=== PATIENT | male | born 1980 | race Caucasian/White ===

== ENCOUNTER 2020-04-06 07:55 | Outpatient (REF) | payer OTHER, SELFPAY ==
[2020-04-06 08:47] LABS: MANUAL DIFF FLAG NO
[2020-04-06 08:50] LABS: Basophils Percent Auto 0.6 % (0-2); Eosinophils Absolute Auto 0.3 X10*3/uL (0.0-0.4); Eosinophils Percent Auto 3.8 % (0-4); Imm Gran Abs Auto 0.03 X10*3/uL (0.00-0.03); Imm Gran Pct Auto 0.5 % (0.0-0.4); Lymphocytes Absolute Auto 1.9 X10*3/uL (1.2-4.9); Lymphocytes Percent Auto 28.7 % (20-40); Mean Corpuscular HGB Conc 32.6 g/dl (31.0-36.0); Mean Corpuscular Hemoglobin 27.6 pg (27.0-33.0); Mean Corpuscular Volume 84.6 fL (80-98); Monocytes Absolute Auto 0.5 X10*3/uL (0.1-1.2); Monocytes Percent Auto 7.2 % (2-11); Neutrophils Absolute Auto 3.9 X10*3/uL (2.0-8.3); Neutrophils Percent Auto 59.2 % (45-73); Platelet Count 238 X10*3/uL (160-400); Red Blood Count 5.08 X10*6/uL (4.60-5.80); Red Cell Distribution Width 12.9 % (11.0-16.0); White Blood Count 6.7 X10*3/uL (4.8-10.8)
[2020-04-06 09:12] LABS: Alanine Aminotransferase 31 U/L (0-40); Albumin Level 4.4 g/dL (3.5-5.0); Alkaline Phosphatase 66 U/L (39-117); Anion Gap 14 (12-20); Aspartate Amino Transferase 26 U/L (5-37); Bilirubin Total 0.8 mg/dL (0.0-1.0); Blood Urea Nitrogen 14 mg/dL (9-16); Calcium 9.1 mg/dL (8.4-10.2); Carbon Dioxide 26 mmol/L (22-29); Chloride 101 mmol/L (96-108); Cholesterol 171 mg/dL; Estimated Glomerular Filt Rate > 60; Glucose Fasting 87 mg/dL (60-99); HDL Cholesterol 43 mg/dL; LDL Cholesterol Calculated 96 mg/dl; Potassium 4.6 mmol/l (3.3-5.1); Sodium 136 mmol/L (135-145); Triglycerides 161 mg/dL
[2020-04-06 10:40] LABS: Free T4 (Free Thyroxine) 1.22 ng/dL (0.71-1.85)
[2020-04-06 10:54] LABS: Creatinine Urine 134.12 mg/dL; Microalbum/Creatinine Ratio Ur 12.6 ug/mg cr
== END 2020-04-06 07:56 | disposition home or self-care (01) ==
LOC: HO.LAB 07:55
PROVIDERS: PCP Physician Assistant; Visit Provider Physician Assistant
DX: I10 Essential (primary) hypertension (principal); E03.9 Hypothyroidism, unspecified
CPT/HCPCS: 36415; 80053; 80061; 82043; 84439; 84443; 85025

== ENCOUNTER 2020-12-05 07:10 | Outpatient (REF) | payer OTHER, SELFPAY ==
[2020-12-05 08:49] LABS: Hematocrit 43.2 % (42-52); Hemoglobin 14.2 g/dl (14.0-18.0); Mean Corpuscular HGB Conc 32.9 g/dl (31.0-36.0); Mean Corpuscular Hemoglobin 27.8 pg (27.0-33.0); Mean Corpuscular Volume 84.7 fL (80-98); Mean Platelet Volume 11.1 fL (9.4-12.4); Platelet Count 237 X10*3/uL (160-400); Red Cell Distribution Width 13.1 % (11.0-16.0); White Blood Count 6.3 X10*3/uL (4.8-10.8)
[2020-12-05 08:54] LABS: Estimated Average Glucose 105 mg/dL; Hemoglobin A1c % 5.3 %
[2020-12-05 09:14] LABS: Alanine Aminotransferase 26 U/L (0-40); Albumin Level 4.4 g/dL (3.5-5.0); Alkaline Phosphatase 68 U/L (39-117); Anion Gap 13 (12-20); Aspartate Amino Transferase 23 U/L (5-37); Bilirubin Total 0.6 mg/dL (0.0-1.0); Blood Urea Nitrogen 17 mg/dL (9-16); Calcium 9.6 mg/dL (8.4-10.2); Carbon Dioxide 26 mmol/L (22-29); Chloride 104 mmol/L (96-108); Cholesterol 189 mg/dL; Estimated Glomerular Filt Rate > 60; Glucose Fasting 82 mg/dL (60-99); HDL Cholesterol 42 mg/dL; LDL Cholesterol Calculated 113 mg/dl; Potassium 4.5 mmol/L (3.3-5.1); Sodium 138 mmol/L (135-145); Total Protein 7.1 g/dL (6.5-8.0); Triglycerides 171 mg/dL
[2020-12-05 09:23] LABS: TSH reflex Free T4 3.87 uIU/mL (0.32-4.0)
== END 2020-12-05 07:11 | disposition home or self-care (01) ==
LOC: HO.LAB 07:10
PROVIDERS: PCP Physician Assistant; Visit Provider Physician Assistant
DX: E03.9 Hypothyroidism, unspecified (principal); E78.2 Mixed hyperlipidemia; E66.01 Morbid (severe) obesity due to excess calories; Z68.43 Body mass index [BMI] 50.0-59.9, adult; I10 Essential (primary) hypertension
CPT/HCPCS: 36415; 80053; 80061; 83036; 84443; 85027

== ENCOUNTER 2021-07-12 07:15 | Outpatient (REF) | payer OTHER, SELFPAY ==
[2021-07-12 08:18] LABS: Estimated Average Glucose 108 mg/dL; Hemoglobin A1C 124.5595 umol/L; Hemoglobin A1c % 5.4 %
[2021-07-12 08:26] LABS: Alanine Aminotransferase 57 U/L (0-40); Albumin Level 4.3 g/dL (3.5-5.0); Alkaline Phosphatase 62 U/L (39-117); Anion Gap 13 (12-20); Aspartate Amino Transferase 33 U/L (5-37); Bilirubin Total 0.6 mg/dL (0.0-1.0); Blood Urea Nitrogen 15 mg/dL (9-16); Calcium 9.8 mg/dL (8.4-10.2); Carbon Dioxide 28 mmol/L (22-29); Chloride 104 mmol/L (96-108); Cholesterol 187 mg/dL; Estimated Glomerular Filt Rate > 60; Glucose Fasting 94 mg/dL (60-99); HDL Cholesterol 43 mg/dL; LDL Cholesterol Calculated 108 mg/dl; Sodium 140 mmol/L (135-145); Triglycerides 184 mg/dL
[2021-07-12 08:49] LABS: Prostate Specific Antigen Scr 0.31 ng/mL (<0.05-4.0); TSH reflex Free T4 4.33 uIU/mL (0.32-4.0)
[2021-07-12 09:20] LABS: Vitamin D 25-OH Total 31.7 ng/mL (>30)
[2021-07-12 09:36] LABS: Free T4 (Free Thyroxine) 1.04 ng/dL (0.71-1.85)
== END 2021-07-12 07:16 | disposition home or self-care (01) ==
LOC: HO.LAB 07:15
PROVIDERS: PCP Physician Assistant; Visit Provider Physician Assistant
DX: E78.2 Mixed hyperlipidemia (principal); E66.01 Morbid (severe) obesity due to excess calories; Z68.43 Body mass index [BMI] 50.0-59.9, adult; I10 Essential (primary) hypertension; E03.9 Hypothyroidism, unspecified; Z12.5 Encounter for screening for malignant neoplasm of prostate
CPT/HCPCS: 36415; 80053; 80061; 82306; 83036; 84153; 84439; 84443

== ENCOUNTER 2021-12-15 07:56 | Outpatient (REF) | payer OTHER, SELFPAY ==
[2021-12-15 08:31] LABS: Hematocrit 42.4 % (42.0-52.0); Hemoglobin 14.2 g/dl (14.0-18.0); Mean Corpuscular HGB Conc 33.5 g/dl (31.0-36.0); Mean Corpuscular Hemoglobin 28.5 pg (27.0-33.0); Mean Corpuscular Volume 85.1 fL (80.0-98.0); Mean Platelet Volume 10.8 fL (9.4-12.4); Platelet Count 212 X10*3/uL (160-400); Red Blood Count 4.98 X10*6/uL (4.60-5.80); Red Cell Distribution Width 13.3 % (11.0-16.0)
[2021-12-15 08:35] LABS: Appearance Urine CLEAR; Color Urine YELLOW; Glucose Urine UA NEG (NEG); Leukocyte Esterase Urine NEG (NEG); Nitrite Urine NEG (NEG); PH 6.5 (5.0-8.0); Specific Gravity - Urine <= 1.005 (1.005-1.025); Urine Blood NEG (NEG); Urine Ketones NEG (NEG); Urine Protein NEG (NEG-TRACE)
[2021-12-15 09:05] LABS: Alanine Aminotransferase 52 U/L (0-40); Albumin Level 4.5 g/dL (3.5-5.0); Alkaline Phosphatase 70 U/L (39-117); Anion Gap 12 (12-20); Aspartate Amino Transferase 33 U/L (5-37); Blood Urea Nitrogen 10 mg/dL (9-16); Calcium 9.7 mg/dL (8.4-10.2); Carbon Dioxide 27 mmol/L (22-29); Chloride 104 mmol/L (96-108); Cholesterol 188 mg/dL; Estimated Glomerular Filt Rate > 60; Glucose Fasting 88 mg/dL (60-99); HDL Cholesterol 46 mg/dL; LDL Cholesterol Calculated 109 mg/dl; Potassium 4.4 mmol/L (3.3-5.1); Sodium 139 mmol/L (135-145); Total Protein 7.2 g/dL (6.5-8.0); Triglycerides 169 mg/dL
[2021-12-15 09:25] LABS: TSH reflex Free T4 3.41 uIU/mL (0.32-4.0)
[2021-12-18 03:57] LABS: Immunoglobulin E 51 kU/L (<OR=114)
== END 2021-12-15 07:57 | disposition home or self-care (01) ==
LOC: HO.LAB 07:56
PROVIDERS: PCP Physician Assistant; Visit Provider Physician Assistant
DX: L23.9 Allergic contact dermatitis, unspecified cause (principal); E03.9 Hypothyroidism, unspecified; E78.2 Mixed hyperlipidemia; R30.0 Dysuria; I10 Essential (primary) hypertension
CPT/HCPCS: 36415; 80053; 80061; 81003; 82785; 84443; 85027

== ENCOUNTER 2021-12-29 08:41 | Outpatient (REF) | payer OTHER, SELFPAY | END 2021-12-29 08:42 | disposition home or self-care (01) | LOC: HO.LAB 08:41 | PROVIDERS: PCP Physician Assistant; Visit Provider Physician Assistant | DX: Z91.09 Other allergy status, other than to drugs and biological substances (principal) | CPT/HCPCS: 36415; 82785; 86003 ==

== ENCOUNTER 2022-12-26 06:44 | Outpatient (REF) | payer OTHER, SELFPAY ==
[2022-12-26 09:14] LABS: Hematocrit 43.9 % (42.0-52.0); Hemoglobin 14.2 g/dl (14.0-18.0); Mean Corpuscular HGB Conc 32.3 g/dl (31.0-36.0); Mean Corpuscular Volume 86.6 fL (80.0-98.0); Mean Platelet Volume 10.9 fL (9.4-12.4); Platelet Count 235 X10*3/uL (160-400); Red Blood Count 5.07 X10*6/uL (4.60-5.80); Red Cell Distribution Width 12.7 % (11.0-16.0); White Blood Count 7.7 X10*3/uL (4.8-10.8)
[2022-12-26 09:54] LABS: Alanine Aminotransferase 44 U/L (0-40); Albumin Level 4.2 g/dL (3.5-5.0); Alkaline Phosphatase 61 U/L (39-117); Anion Gap 14 (12-20); Aspartate Amino Transferase 24 U/L (5-37); Bilirubin Total 0.4 mg/dL (0.0-1.0); Blood Urea Nitrogen 13 mg/dL (9-16); Calcium 9.9 mg/dL (8.4-10.2); Carbon Dioxide 26 mmol/L (22-29); Chloride 103 mmol/L (96-108); Cholesterol 194 mg/dL; Estimated Glomerular Filt Rate > 60; Glucose Fasting 72 mg/dL (60-99); HDL Cholesterol 46 mg/dL; LDL Cholesterol Calculated 99 mg/dl; Potassium 4.1 mmol/L (3.3-5.1); Sodium 139 mmol/L (135-145); TSH reflex Free T4 4.82 uIU/mL (0.32-4.0); Total Protein 7.3 g/dL (6.5-8.0); Triglycerides 248 mg/dL
[2022-12-26 09:55] LABS: Vitamin D 25-OH Total 35.4 ng/mL (>30)
[2022-12-26 10:44] LABS: Free T4 (Free Thyroxine) 0.97 ng/dL (0.71-1.85)
[2022-12-26 11:16] LABS: Creatinine Urine 85.42 mg/dL; Microalbum/Creatinine Ratio Ur 18.7 ug/mg cr
== END 2022-12-26 06:45 | disposition home or self-care (01) ==
LOC: HO.LAB 06:44
PROVIDERS: Nurse Practitioner Family; PCP Physician Assistant; Visit Provider Physician Assistant
DX: Z00.00 Encounter for general adult medical examination without abnormal findings (principal); E03.9 Hypothyroidism, unspecified; I10 Essential (primary) hypertension; E78.2 Mixed hyperlipidemia; E78.5 Hyperlipidemia, unspecified; L30.9 Dermatitis, unspecified
CPT/HCPCS: 36415; 80053; 80061; 82043; 82306; 84439; 84443; 85027

== ENCOUNTER 2023-01-04 07:37 | Outpatient (REF) | payer OTHER, SELFPAY ==
[2023-01-06 09:54] LABS: DHEA Sulfate 208 mcg/dL (93-415)
[2023-01-06 10:38] LABS: Prolactin 6.1 ng/mL (2.0-18.0)
[2023-01-09 12:24] LABS: Testosterone, Total 227 ng/dL (250-1100)
[2023-01-09 22:18] LABS: Estradiol Ultra Sensitive 56 pg/mL (< OR = 29)
== END 2023-01-04 07:38 | disposition home or self-care (01) ==
LOC: HO.LAB 07:37
PROVIDERS: PCP Physician Assistant; Visit Provider Physician Assistant
DX: E66.01 Morbid (severe) obesity due to excess calories (principal); E03.9 Hypothyroidism, unspecified; E29.1 Testicular hypofunction; Z68.43 Body mass index [BMI] 50.0-59.9, adult
CPT/HCPCS: 36415; 82627; 82670; 84146; 84402; 84403

== ENCOUNTER 2023-02-17 09:59 | Outpatient (AMB) | payer OTHER, SELFPAY ==
--- NOTE | 2023-02-17 10:04 | MHC.OFFVIS ---
Intake Intake Visit Reasons: Testicular hypofunction Intake Note: New Patient presents for initial visit testicular hypofunction (total test 227) Urology Medications: none Blood Thinner: none Surgical Lead Required: No Accompanied by: Self / Same As Patient Allergies penicillin V Allergy (Unknown, Verified 02/17/23 10:05) hives HPI HPI Comments History of Present Illness Details Fredis is a very pleasant 42 year old male patient of Dr. Zhu. He has a past medical history of obesity, sleep apnea, hypothyroidism, and hypercholesteremia. He presents to the office today as a new patient for hypogonadism. In discussion with the patient today he reports to be doing and feeling well. He reports following up with his PCP regarding send out labs he had performed through [facility]. At which time testosterone levels were noted to be low. It appears PCP obtain testosterone level for further assessment evaluation. These results were reviewed with the patient today. 12/29 Testosterone--227 07/31 PSA--0.3 He denies any signs or symptoms of hypogonadism. He denies any bothersome issues with his urination. He does report to be CPAP compliant since 2018. He discusses attempting to lose weight and is going for daily walks. Discussed at length potential causes for hypogonadism. Discussed obtaining redraw of labs for further assessment evaluation. In office urinalysis results reviewed with the patient today. He otherwise offers no other issues or concerns at this time. [facility] Medical History (Updated 02/17/23 @ 22:10 by Ana Kirkland [facility]) Sleep apnea Upper respiratory tract infection Patient is full code Surgical History History of surgical removal of lesion History of cosmetic surgery History of tonsillectomy and adenoidectomy History of appendectomy Family History Father CVD (cardiovascular disease) Hyperthyroidism Melanoma Mother Aortic valve replaced CVD (cardiovascular disease) Maternal Grandfather Myocardial infarction Brother Liver transplant status Biliary sclerosis Social History Housing: House Alcohol intake: current Alcohol intake frequency: holidays/special occasions only Patient Tobacco Use Status: Never used Tobacco Tobacco use type: Cigarette e-Cigarette/Vaping Use: Never Used Second Hand Smoke Exposure: No service: No Current occupational status: employed Current occupation: [employer] Cognitive needs: No Hearing needs: No Vision needs: No Review of Systems Const Reports as per HPI Eyes Reports no additional complaints ENT Reports as per HPI Card Reports as per HPI Resp Reports as per HPI GI Reports as per HPI Reports as per HPI Neuro Reports no additional complaints Psych Reports no additional complaints Endo Reports as per HPI Physical Exam Const General: cooperative, healthy appearing, comfortable, no acute distress, well developed, alert and awake Nutritional Appearance: obese Orientation/consciousness: patient oriented x3 Limitations: no limitations HEENT Head: Yes normal to inspection, Yes normocephalic and Yes atraumatic Ears: hearing grossly normal bilaterally Eyes General: appearance normal, both eyes and all related structures Neck Neck: Yes normal visual inspection and Yes trachea midline Chest Chest palpation & inspection: normal inspection of the chest Resp Effort & Inspection: normal respiratory effort and able to speak in complete sentences Cardio Rate: regular rate GI Inspection: Yes normal to inspection General: Yes no CVA tenderness Back/Spine/Pelvis Back: no CVA tenderness Skin General skin exam: no rashes or lesions noted Neuro General: patient oriented x3 Extrem General: Yes normal to inspection Psych Appearance: grossly normal and well kempt Mental Status: mental status grossly normal Speech and movement: Normal speech and movement present and Clear speech present Affect: normal affect Attitude: cooperative Thought process: Normal thought process present Thought content: Normal thought content present Insight: Good insight present (Psych) Judgement: Good judgement present (Psych) Results AMB Urinalysis, Automated UA Leukoctes 0 Darren/uL Last Edit by [employer] on 02/17/23 10:17 UA Nitrite Last Edit by [employer] on 02/17/23 10:17 UA Urobilinogen 0.2 mg/dL Last Edit by [email or web address] on 02/17/23 10:17 UA Protein 0 mg/dL Last Edit by [email or web address] on 02/17/23 10:17 UA pH 6.0 Last Edit by [email or web address] on 02/17/23 10:17 UA Blood 0 Kenan/uL Last Edit by [email or web address] on 02/17/23 10:17 UA Specific Sultan 1.005 Last Edit by [email or web address] on 02/17/23 10:17 UA Ketone Negative Last Edit by Ana Paula Chappell on 02/17/23 10:17 UA Bilirubin 0 mg/dL Last Edit by Ana Paula Chappell on 02/17/23 10:17 UA Glucose 0 mg/dL Last Edit by Ana Paula Chappell on 02/17/23 10:17 Results Reviewed Results Reviewed: Laboratory Last Values Urine pH (Auto) 6.0 02/17/23 10:07 Specific Sultan (Auto) 1.005 02/17/23 10:07 Urine Protein (Auto) 0 mg/dL 02/17/23 10:07 Glucose (UA)(Auto) 0 mg/dL 02/17/23 10:07 Urine Ketones (Auto) Negative 02/17/23 10:07 Urine Blood (Auto) 0 Kenan/uL 02/17/23 10:07 Urine Bilirubin (Auto) 0 mg/dL 02/17/23 10:07 Urine Urobilinogen (Auto) 0.2 mg/dL 02/17/23 10:07 Leukocyte Esterase (Auto) 0 Darren/uL 02/17/23 10:07 Assessment & Plan Assessment & Plan (1) Low testosterone in male: Code(s): R79.89 - Other specified abnormal findings of blood chemistry (2) Hypogonadism in male: Code(s): E29.1 - Testicular hypofunction Plan In office urinalysis results reviewed with the patient today; as noted above. Recent testosterone results reviewed with the patient today; as noted above. Discussed at length potential causes for hypogonadism. Discussed importance of compliance with CPAP, weight loss, adequate sleep, and daily activity for improvement in testosterone levels as well as overall health and well-being. Will obtain testosterone free and total, testosterone, FSH, LH, TSH, SHBG, and prolactin for further assessment evaluation. Patient denies any bothersome urinary issues or concerns at this time. Follow-up in 1 month with labs to be completed prior; or sooner with any issues, concerns, and or questions. Orders: Orders Testosterone, Free/Total Today E29.1 - Testicular hypofunction Follicle Stimulating Hormone Today E29.1 - Testicular hypofunction, R79.89 - Other specified abnormal findings of blood chemistry Lutenizing Hormone Today E29.1 - Testicular hypofunction, R79.89 - Other specified abnormal findings of blood chemistry Thyroid Stimulating Hormone Today E29.1 - Testicular hypofunction, R79.89 - Other specified abnormal findings of blood chemistry Sex Hormone Binding Globulin Today E29.1 - Testicular hypofunction, R79.89 - Other specified abnormal findings of blood chemistry AMB Urinalysis Automated Today Z13.9 - Encounter for screening, unspecified Prolactin Today E29.1 - Testicular hypofunction, R79.89 - Other specified abnormal findings of blood chemistry Patient Instructions: The patient had an opportunity to ask questions regarding the treatment plan. All questions were answered. Physical exam, labs, and imaging were discussed and reviewed in detail. As well as risks, benefits, and discussion of treatment choices. No major barriers to understanding were identified. The patient expressed understanding and agreement with the above treatment plan. The patient was made aware they should contact our office by phone for worsening of their current condition, the appearance of new symptoms, or with any questions or concerns. Compliance is encouraged with any medications and follow up testing that is ordered. It is a privilege to be allowed the opportunity to participate in? your urological care.? Again, if you have any questions or concerns If you have any questions or concerns please do not hesitate to contact me. The office is [phone]. This note is constructed using voice recognition software. While every effort has been made to ensure accuracy satellite installer errors may have been included. Yours sincerely, GIULIANA Arias Coding Level of Care Code New Pt Level 3 (99550) Diagnoses Low testosterone in male R79.89 Hypogonadism in male E29.1
== END 2023-02-17 10:43 | disposition home or self-care (01) ==
PROVIDERS: PCP Physician Assistant; Visit Provider Nurse Practitioner Family
DX: R79.89 Other specified abnormal findings of blood chemistry (principal); E29.1 Testicular hypofunction
CPT/HCPCS: 99203

== ENCOUNTER → 2023-02-17 09:59 | Outpatient (BNVA) | payer OTHER, SELFPAY | PROVIDERS: PCP Physician Assistant; Visit Provider Nurse Practitioner Family | DX: E29.1 Testicular hypofunction (principal); R79.89 Other specified abnormal findings of blood chemistry | CPT/HCPCS: 81003 ==

== ENCOUNTER 2023-03-01 08:00 | Outpatient (REF) | payer OTHER, SELFPAY ==
[2023-03-03 00:44] LABS: Lutenizing Hormone 2.2 mIU/mL (1.5-9.3); Prolactin 5.4 ng/mL (2.0-18.0); Sex Hormone Binding Globulin 30 nmol/L (10-50)
[2023-03-06 12:23] LABS: Testosterone, Free 39.5 pg/mL (35.0-155.0); Testosterone, Total 241 ng/dL (250-1100)
== END 2023-03-01 08:01 | disposition home or self-care (01) ==
LOC: HO.LAB 08:00
PROVIDERS: Absent Provider Physician Assistant; PCP Physician Assistant; Visit Provider Nurse Practitioner Family
DX: E03.9 Hypothyroidism, unspecified (principal); E29.1 Testicular hypofunction; R79.89 Other specified abnormal findings of blood chemistry
CPT/HCPCS: 36415; 83001; 83002; 84146; 84270; 84402; 84403; 84443

== ENCOUNTER 2023-03-24 13:56 | Outpatient (AMB) | payer OTHER, SELFPAY ==
--- NOTE | 2023-03-24 13:57 | A.OFFVIS_ITS ---
Intake Intake Visit Reasons: 1m/labs Intake Note: Patient presents for follow up visit low testosterone (testosterone 241) Urology Medications: none Blood Thinner: none Cloth Cutter Required: No Accompanied by: Self / Same As Patient Allergies penicillin V Allergy (Unknown, Verified 03/24/23 20:33) hives Medication List - Last Reconciled 03/24/23 by GIULIANA Arias atorvastatin 80 mg PO DAILY cholecalciferol (vitamin D3) 125 mcg PO DAILY levothyroxine 125 mcg PO DAILY 90 days liraglutide (weight loss) (Saxenda) 1.2 mg subcut DAILY lisinopril 2.5 mg PO DAILY loratadine (Claritin) 10 mg PO DAILY tadalafil (Cialis) 5 mg PO DAILY 90 days HPI HPI Comments History of Present Illness Details Fredis is a very pleasant 42 year old male patient of Dr. Zhu. He has a past medical history of obesity, sleep apnea, hypothyroidism, and hypercholesteremia. He presents to the office today for follow-up. Of note, patient was seen approximately 1 month ago as a new patient for hypogonadism at which time labs were ordered for further assessment evaluation. These results were reviewed with the patient today. 12/29--Estradiol --56 03/01--FSH--2.0, LH--2.2, prolactin--5.4, total testosterone--241, free testosterone--39.5, SHBG--30, DHEA sulfate--208. 12/29 Testosterone--227 07/31 PSA--0.3 When asked patient reports to be doing and feeling well. He denies any signs or symptoms of hypogonadism. He denies any bothersome issues with his urination. He does report to be CPAP compliant since 2018. He discusses attempting to lose weight and is going for daily walks. He discusses losing approximately 40 lb in the last 2 months. Discussed at length potential causes for hypogonadism. Discussed low-dose Cialis versus testosterone replacement therapy. In office urinalysis results reviewed with the patient today. He otherwise offers no other issues or concerns at this time. [facility] Medical History Sleep apnea Upper respiratory tract infection Patient is full code Surgical History History of surgical removal of lesion History of cosmetic surgery History of tonsillectomy and adenoidectomy History of appendectomy Family History Father CVD (cardiovascular disease) Hyperthyroidism Melanoma Mother Aortic valve replaced CVD (cardiovascular disease) Maternal Grandfather Myocardial infarction Brother Liver transplant status Biliary sclerosis Social History Housing: House Alcohol intake: current Alcohol intake frequency: holidays/special occasions only Patient Tobacco Use Status: Never used Tobacco Tobacco use type: Cigarette e-Cigarette/Vaping Use: Never Used Second Hand Smoke Exposure: No service: No Current occupational status: employed Current occupation: [employer] Cognitive needs: No Hearing needs: No Vision needs: No Review of Systems Const Reports as per HPI Eyes Reports no additional complaints ENT Reports as per HPI Card Reports as per HPI Resp Reports as per HPI GI Reports as per HPI Reports as per HPI Neuro Reports no additional complaints Psych Reports no additional complaints Endo Reports as per HPI Physical Exam Const General: cooperative, healthy appearing, comfortable, no acute distress, well developed, alert and awake Nutritional Appearance: obese Orientation/consciousness: patient oriented x3 Limitations: no limitations HEENT Head: Yes normal to inspection, Yes normocephalic and Yes atraumatic Ears: hearing grossly normal bilaterally Eyes General: appearance normal, both eyes and all related structures Neck Neck: Yes normal visual inspection and Yes trachea midline Chest Chest palpation & inspection: normal inspection of the chest Resp Effort & Inspection: normal respiratory effort and able to speak in complete sentences Cardio Rate: regular rate GI Inspection: Yes normal to inspection General: Yes no CVA tenderness Back/Spine/Pelvis Back: no CVA tenderness Skin General skin exam: no rashes or lesions noted Neuro General: patient oriented x3 Extrem General: Yes normal to inspection Psych Appearance: grossly normal and well kempt Mental Status: mental status grossly normal Speech and movement: Normal speech and movement present and Clear speech present Affect: normal affect Attitude: cooperative Thought process: Normal thought process present Thought content: Normal thought content present Insight: Good insight present (Psych) Judgement: Good judgement present (Psych) Results AMB Urinalysis, Automated UA Leukoctes 0 Darren/uL Last Edit by Ana Paula Chappell on 03/24/23 14:12 UA Nitrite Negative Last Edit by Ana Paula Chappell on 03/24/23 14:12 UA Urobilinogen 0.2 mg/dL Last Edit by Ana Paula Chappell on 03/24/23 14:12 UA Protein 0 mg/dL Last Edit by Ana Paula Chappell on 03/24/23 14:12 UA pH 5.5 Last Edit by Ana Paula Chappell on 03/24/23 14:12 UA Blood 0 Kenan/uL Last Edit by Ana Paula Chappell on 03/24/23 14:12 UA Specific Success 1.015 Last Edit by Ana Paula Chappell on 03/24/23 14:12 UA Ketone Negative Last Edit by Ana Paula Chappell on 03/24/23 14:12 UA Bilirubin 0 mg/dL Last Edit by Ana Paula Chappell on 03/24/23 14:12 UA Glucose 0 mg/dL Last Edit by Ana Paula Chappell on 03/24/23 14:12 Results Reviewed Results Reviewed: Laboratory Last Values Urine pH (Auto) 5.5 03/24/23 13:59 Specific Success (Auto) 1.015 03/24/23 13:59 Urine Protein (Auto) 0 mg/dL 03/24/23 13:59 Glucose (UA)(Auto) 0 mg/dL 03/24/23 13:59 Urine Ketones (Auto) Negative 03/24/23 13:59 Urine Blood (Auto) 0 Kenan/uL 03/24/23 13:59 Urine Nitrite (Auto) Negative 03/24/23 13:59 Urine Bilirubin (Auto) 0 mg/dL 03/24/23 13:59 Urine Urobilinogen (Auto) 0.2 mg/dL 03/24/23 13:59 Leukocyte Esterase (Auto) 0 Darren/uL 03/24/23 13:59 Assessment & Plan Assessment & Plan (1) Low testosterone in male: Code(s): R79.89 - Other specified abnormal findings of blood chemistry (2) Hypogonadism in male: Code(s): E29.1 - Testicular hypofunction Plan In office urinalysis results reviewed with the patient today; as noted above. Recent lab results reviewed with the patient today; as noted above. Discussed at length potential causes for hypogonadism. Discussed importance of compliance with CPAP, weight loss, adequate sleep, and daily activity for improvement in testosterone levels as well as overall health and well-being. Start 5 mg of Cialis daily; as discussed and prescribed. Will obtain redraw of testosterone free and total in 3 months Patient denies any bothersome urinary issues or concerns at this time. Follow-up in 1 month with labs to be completed prior; or sooner with any issues, concerns, and or questions. Orders: Orders AMB Urinalysis Automated Today Z13.9 - Encounter for screening, unspecified Testosterone, Free/Total 3 Months E11.69 - Type 2 diabetes mellitus with other specified complication, N52.1 - Erectile dysfunction due to diseases classified elsewhere Medications: New tadalafil (Cialis) 5 mg PO DAILY 90 days 90 tabs 0RF Patient Instructions: The patient had an opportunity to ask questions regarding the treatment plan. All questions were answered. Physical exam, labs, and imaging were discussed and reviewed in detail. As well as risks, benefits, and discussion of treatment choices. No major barriers to understanding were identified. The patient expressed understanding and agreement with the above treatment plan. The patient was made aware they should contact our office by phone for worsening of their current condition, the appearance of new symptoms, or with any questions or concerns. Compliance is encouraged with any medications and follow up testing that is ordered. It is a privilege to be allowed the opportunity to participate in? your urological care.? Again, if you have any questions or concerns If you have any questions or concerns please do not hesitate to contact me. The office is [phone]. This note is constructed using voice recognition software. While every effort has been made to ensure accuracy bush hog operator errors may have been included. Yours sincerely, GIULIANA Arias Coding Level of Care Code Est Pt Level 4 (12013) Diagnoses Low testosterone in male R79.89 Hypogonadism in male E29.1
== END 2023-03-24 14:44 | disposition home or self-care (01) ==
PROVIDERS: PCP Physician Assistant; Visit Provider Nurse Practitioner Family
DX: R79.89 Other specified abnormal findings of blood chemistry (principal); E29.1 Testicular hypofunction
CPT/HCPCS: 99214

== ENCOUNTER → 2023-03-24 13:56 | Outpatient (BNVA) | payer OTHER, SELFPAY | PROVIDERS: PCP Physician Assistant; Visit Provider Nurse Practitioner Family | DX: E29.1 Testicular hypofunction (principal); R79.89 Other specified abnormal findings of blood chemistry | CPT/HCPCS: 81003 ==

== ENCOUNTER 2023-06-10 06:42 | Outpatient (REF) | payer OTHER, SELFPAY ==
[2023-06-10 07:35] LABS: Alanine Aminotransferase 40 U/L (0-40); Albumin Level 4.3 g/dL (3.5-5.0); Alkaline Phosphatase 69 U/L (39-117); Anion Gap 13 (12-20); Aspartate Amino Transferase 26 U/L (5-37); Bilirubin Total 0.7 mg/dL (0.0-1.0); Blood Urea Nitrogen 11 mg/dL (9-16); Calcium 9.9 mg/dL (8.4-10.2); Carbon Dioxide 27 mmol/L (22-29); Chloride 104 mmol/L (96-108); Cholesterol 160 mg/dL (<200); Estimated Glomerular Filt Rate > 60; Glucose Fasting 91 mg/dL (60-99); HDL Cholesterol 43 mg/dL (>40); LDL Cholesterol Calculated 86 mg/dL (<100); Potassium 4.2 mmol/L (3.3-5.1); Sodium 140 mmol/L (135-145); Total Protein 7.4 g/dL (6.5-8.0); Triglycerides 158 mg/dL (<150)
[2023-06-10 08:27] LABS: Creatinine Urine 116.24 mg/dL; Microalbum/Creatinine Ratio Ur 8.6 ug/mg cr (<30)
[2023-06-14 14:04] LABS: Testosterone, Free 54.1 pg/mL (35.0-155.0); Testosterone, Total 401 ng/dL (250-1100)
== END 2023-06-10 06:43 | disposition home or self-care (01) ==
LOC: HO.LAB 06:42
PROVIDERS: PCP Physician Assistant; Referring Provider Physician Assistant; Visit Provider Nurse Practitioner Family
DX: E78.2 Mixed hyperlipidemia (principal); E03.9 Hypothyroidism, unspecified; E11.69 Type 2 diabetes mellitus with other specified complication; N52.1 Erectile dysfunction due to diseases classified elsewhere; R80.9 Proteinuria, unspecified
CPT/HCPCS: 36415; 80053; 80061; 82043; 82570; 84402; 84403; 84443

== ENCOUNTER 2023-06-16 09:53 | Outpatient (AMB) | payer OTHER, SELFPAY ==
--- NOTE | 2023-06-16 10:11 | MHC.PC.OV ---
Vital Signs 06/16/23 10:12 06/16/23 10:35 Height 6 ft Weight 357 lb BMI 48.4 BP 140/94 H 140/90 H Blood Pressure Location Lt brachial Position Sitting Respiration 17 Pulse 82 Pulse Source Palpation Intake Visit Reasons: HTN, thyroid, HLD Allergies penicillin V Allergy (Unknown, Verified 06/16/23 10:19) hives Medication List - Last Reconciled 06/16/23 by Luke Zhu PA-C atorvastatin 80 mg PO DAILY cholecalciferol (vitamin D3) 125 mcg PO DAILY levothyroxine 125 mcg PO DAILY 90 days liraglutide (weight loss) (Saxenda) 1.2 mg subcut DAILY lisinopril 2.5 mg PO DAILY loratadine (Claritin) 10 mg PO DAILY tadalafil (Cialis) 5 mg PO DAILY 90 days Tobacco use date assessed: 12/11/22 HPI HTN, thyroid, HLD HPI Details Patient is a 43 year old male here today for follow-up visit. ? Patient has a past medical history significant for hypothyroidism, hypercholesterolemia, microalbuminuria, obesity, hypertension, VICKIE,.. ? .. ? Hypertension: Was started on lisinopril 2.5 due to microalbuminuria. Today's blood pressure slightly elevated. Does not monitor blood pressure at home. Fortunately he is asymptomatic without any headache, vision issues or chest pains. .. VICKIE: Continues on nightly use of his obstructive sleep apnea machine with good effect on sleep. .. Obesity:? Has started weight watchers program. Does see a provider whom provides him weight loss injection on a daily basis. Appetite has been much difference in starting medication.. Has lost significant on weight- BMI today of 48.4 .. Hypogonadism: Has stabbed list care with Urology. Has been started on Cialis 5 mg. Most recent testosterone level normalized with weight loss in the addition of Cialis. ? .. ? HYpothyroid:? Most recent TSH stable. he has been clinically euthyroid. ? Will continue to follow TSH ? .. ? HLD: Has been stable with statin therapy.?? No reported side effects from statin therapy. Laboratory Tests 03/01/23 06/10/23 06/10/23 08:34 06:55 06:55 Creatinine 0.68 Triglycerides 158 H TSH 3.80 Total Testosterone 241 L 401 PFSH Medical History Sleep apnea Upper respiratory tract infection Patient is full code Surgical History History of surgical removal of lesion History of cosmetic surgery History of tonsillectomy and adenoidectomy History of appendectomy Family History Father CVD (cardiovascular disease) Hyperthyroidism Melanoma Mother Aortic valve replaced CVD (cardiovascular disease) Maternal Grandfather Myocardial infarction Brother Liver transplant status Biliary sclerosis Social History Housing: House Alcohol intake: current Alcohol intake frequency: holidays/special occasions only Patient Tobacco Use Status: Never used Tobacco Tobacco use type: Cigarette e-Cigarette/Vaping Use: Never Used Second Hand Smoke Exposure: No service: No Current occupational status: employed Current occupation: [employer] Cognitive needs: No Hearing needs: No Vision needs: No Questionnaire PHQ-9 Over the last 2 weeks, how often have you been bothered by any of the following problems? 1. Little interest or pleasure in doing things: not at all 2. Feeling down, depressed, or hopeless: not at all 3. Trouble falling or staying asleep, or sleeping too much: not at all 4. Feeling tired or having little energy: not at all 5. Poor appetite or overeating: not at all 6. Feeling bad about yourself - or that you are a failure or have let yourself or your family down: not at all 7. Trouble concentrating on things, such as reading the newspaper or watching television: not at all 8. Moving or speaking so slowly that other people could have noticed. Or the opposite - being so fidgety or restless that you have been moving around a lot more than usual: not at all 9. Thoughts that you would be better off or of hurting yourself in some way: not at all Total score: 0 Depression Screening Interpretation: Negative Depression Screening Done: Yes 41656 - PHQ-9 Billing: Yes Source: Developed by Drs. Rei Wolfe, Hussain Orosco and colleagues, with an educational manuel from [employer]. Thrive Questionnaire Date Thrive assessed: 06/16/23 I am a: Patient What is your living situation today?: I have a steady place to live Within the past 12 months, did the food you bought not last and you didn't have the money to get more?: Never true Within the past 12 months, did you worry whether your food would run out before you got money to buy more?: Never true Do you have trouble paying for medicines?: No Do you have trouble getting transportation to medical appointments?: No Do you have trouble paying your heating and electricity bill?: No Do you have trouble taking care of your child, family member or friend?: No Do you have trouble with day-to-day activities such as bathing, preparing meals, shopping, managing finances, etc.?: No Are you currently unemployed and looking for a job?: No Are you interested in more education?: No Please select the resources that you would like help with: None Currently or been in a relationship where the following occur: no concerns reported AUDIT C Alcohol Use Questionnaire (AUDIT-C) 1. How often do you have a drink containing alcohol?: 2-4 times a month 2. How many drinks containing alcohol do you have on a typical day when you are drinking?: 3 or 4 3. How often do you have six or more drinks on one occasion?: Less than monthly Total Score: 4 DIANE-7 AMB Questionnaire DIANE-7 Date DIANE - 7 assessed: 06/16/23 Feeling nervous, anxious, or on edge: 0 = Not at all Not being able to stop or control worryin = Not at all Worrying too much about different things: 0 = Not at all Trouble relaxin = Not at all Being so restless that it is hard to sit still: 0 = Not at all Becoming easily annoyed or irritable: 0 = Not at all Feeling afraid as if something awful might happen: 0 = Not at all Total DIANE-7 score (0-4 normal; 5-9 mild; 10-14 moderate; 15-21 severe): 0 Source: Developed by Tessa Devries Kurt Kroenke and colleagues, with an educational manuel from [employer]. DIANE-7 Assessment Billing DIANE-7 Assessment Tool: DIANE-7 Assessment 77415 Review of Systems Const Denies headache(s) Eyes Denies loss of vision ENT Denies vertigo, Denies dizziness, Denies headache(s) and Denies sore throat Card Denies chest pain, Denies leg edema and Denies lightheadedness Resp Denies cough, Denies hemoptysis and Denies wheezing GI Denies abdominal pain, Denies melena, Denies constipation, Denies diarrhea and Denies vomiting Denies dysuria, Denies urinary frequency and Denies urinary urgency Musc Denies arthralgias, Denies joint swelling, Denies numbness and Denies tingling Neuro Denies Abnormal speech present, Denies behavioral changes, Denies vertigo, Denies dizziness, Denies headache(s), Denies loss of vision, Denies memory loss, Denies numbness and Denies tingling Psych Denies anxiety, Denies behavioral changes, Denies depression, Denies memory loss and Denies panic attacks Theron/Lymph Denies easy bleeding and Denies easy bruising Aller/Immun Denies wheezing Physical exam (Primary Care) Vital Signs: Last Vital Signs Pulse 82 06/16/23 10:12 Resp 17 06/16/23 10:12 BP 140/90 H 06/16/23 10:35 BMI result Body Mass Index 48.4 BMI Assessment/Plan discussion: High Tobacco/Smoking Status: Tobacco use Status Tobacco use date assessed 12/11/22 06/16/23 10:12 Patient Tobacco Use Status Never used Tobacco 06/16/23 10:12 Tobacco use type Cigarette 06/16/23 10:12 e-Cigarette/Vaping Use Never Used 06/16/23 10:12 PHQ-9: PHQ-9 Score PHQ-9: Total score 0 06/16/23 10:21 Depression Screening Interpretation: Negative Thrive Assessment: Date of Thrive Assessment Date Thrive assessed 06/16/23 06/16/23 10:18 Currently or been in a relationship where the following occur: no concerns reported Const Other: Obese General: healthy appearing, no acute distress, alert and awake Nutritional Appearance: well nourished Orientation/consciousness: oriented to person, oriented to place and oriented to time HENMT Ears: TM's normal bilaterally General nose exam: Normal nasal mucous membranes and turbinates present Eyes Conjunctivae: conjunctivae normal Sclerae: sclerae normal Pupils: Equal, round and reactive pupils present Neck Neck: Yes no lymphadenopathy and Yes no JVD Thyroid: Thyroid normal Carotids: no bruits Resp Effort & Inspection: normal respiratory effort and not tachypneic Auscultation: no crackles, no rales, no rhonchi and no wheezes Cardio Rate: regular rate Rhythm: regular rhythm Heart sounds: no murmurs and normal S1 and S2 GI Palpation (GI): Soft to palpation, nontender, no hepatomegaly and no splenomegaly Auscultation: normal bowel sounds Skin General skin exam: no rashes or lesions noted and dry skin Neuro General: oriented to person, oriented to place and oriented to time Cranial nerves: Yes Equal, round and reactive pupils present Speech: No Abnormal speech present Gait exam (Neuro): Normal gait present Motor exam (neuro): no tremor noted Extrem Right upper extremity: full ROM Left upper extremity: full ROM Right lower extremity: full ROM; no edema Left lower extremity: full ROM; no edema Psych Mental Status: mental status grossly normal Speech and movement: Normal speech and movement present Affect: normal affect Attitude: cooperative Thought process: Normal thought process present Assessment and Plan Assessment & Plan (1) Obese: Code(s): E66.9 - Obesity, unspecified Qualifiers: Body mass index: BMI 45.0-49.9 Obesity classification: adult class 3 (BMI >= 40) Obesity type: due to excess calories Serious obesity comorbidity presence: without serious comorbidity Qualified Code(s): E66.01 - Morbid (severe) obesity due to excess calories; Z68.42 - Body mass index [BMI] 45.0-49.9, adult Plan: Has lost significant amount of weight since joining weight watchers program. Has started on weight loss injection therapy. Has lost a significant amount of weight. (2) HTN (hypertension): Code(s): I10 - Essential (primary) hypertension Qualifiers: Hypertension type: essential hypertension Qualified Code(s): I10 - Essential (primary) hypertension Plan: Blood pressure readings today in office slightly elevated at 1 40/90. Advised to monitor blood pressure at home with goal blood pressure be below 140/90. If consistently above 140/90 will increase lisinopril 5 mg daily. (3) VICKIE (obstructive sleep apnea): Comment: on CPAP Code(s): G47.33 - Obstructive sleep apnea (adult) (pediatric) Plan: Patient continues to be compliant with nightly use of his CPAP machine. He reports good effect on sleep and daytime somnolence. I advised he continue use of his nightly CPAP machine. (4) HLD (hyperlipidemia): Code(s): E78.5 - Hyperlipidemia, unspecified Qualifiers: Hyperlipidemia type: mixed hyperlipidemia Qualified Code(s): E78.2 - Mixed hyperlipidemia Plan: Patient continues on high potency statin therapy with good effect on reducing his total cholesterol and LDL. Goal LDL to be below 160. (5) Hypothyroidism: Code(s): E03.9 - Hypothyroidism, unspecified Qualifiers: Hypothyroidism type: unspecified Qualified Code(s): E03.9 - Hypothyroidism, unspecified Plan: Patient continues on levothyroxine 100 mcg with good effect. Most recent TSH stable. Will continue to follow TSH to assure normal. (6) Hypogonadism in male: Code(s): E29.1 - Testicular hypofunction Plan: Has been started on Cialis 5 mg daily. Most recent testosterone level normalized with weight loss. Will follow-up with Urology Orders: Orders Microalbumin, Random (w Creat) 6 Months I10 - Essential (primary) hypertension Comprehensive [place]. Panel Fast 6 Months I10 - Essential (primary) hypertension Lipid Panel 6 Months E78.2 - Mixed hyperlipidemia TSH reflex Free T4 6 Months E03.9 - Hypothyroidism, unspecified Coding Level of Care Code Est Pt Level 4 (86693) Diagnoses Class 3 severe obesity due to excess calories without serious comorbidity with body mass index (BMI) of 45.0 to 49.9 in adult E66.01; Z68.42 Body mass index: BMI 45.0-49.9 Obesity classification: adult class 3 (BMI >= 40) Obesity type: due to excess calories Serious obesity comorbidity presence: without serious comorbidity Essential hypertension I10 Hypertension type: essential hypertension VICKIE (obstructive sleep apnea) G47.33 Mixed hyperlipidemia E78.2 Hyperlipidemia type: mixed hyperlipidemia Hypothyroidism, unspecified type E03.9 Hypothyroidism type: unspecified Hypogonadism in male E29.1 Additional Codes DIANE-7 Assessment Billing - DIANE-7 Assessment Tool: DIANE-7 Assessment 62070 ([id number])
[2023-06-16 10:12] VITALS: BP 140/94; PULSE 82; RESP 17; BMI 48.4
[2023-06-16 10:35] VITALS: BP 140/90
== END 2023-06-16 10:45 | disposition home or self-care (01) ==
PROVIDERS: PCP Physician Assistant; Visit Provider Physician Assistant
DX: E66.01 Morbid (severe) obesity due to excess calories (principal); Z68.42 Body mass index [BMI] 45.0-49.9, adult; I10 Essential (primary) hypertension; G47.33 Obstructive sleep apnea (adult) (pediatric); E78.2 Mixed hyperlipidemia; E03.9 Hypothyroidism, unspecified; E29.1 Testicular hypofunction
CPT/HCPCS: 99214

== ENCOUNTER 2023-06-25 10:34 | Outpatient (AMB) | payer OTHER, SELFPAY ==
--- NOTE | 2023-06-25 10:35 | MHC.OFFVIS ---
Intake Intake Visit Reasons: 3m/labs(SET) Intake Note: Patient presents for follow up visit low testosterone (testosterone 401) (free testosterone 54.1) Urology Medications: tadalafil Blood Thinner: none Bilingual Interpreter Required: No Accompanied by: Self / Same As Patient Allergies penicillin V Allergy (Unknown, Verified 06/25/23 11:29) hives Medication List - Last Reconciled 06/25/23 by ISSA Arias[facility] atorvastatin 80 mg PO DAILY cholecalciferol (vitamin D3) 125 mcg PO DAILY levothyroxine 125 mcg PO DAILY 90 days liraglutide (weight loss) (Saxenda) 1.2 mg subcut DAILY lisinopril 2.5 mg PO DAILY loratadine (Claritin) 10 mg PO DAILY multivitamin 1 tab PO DAILY tadalafil (Cialis) 5 mg PO DAILY 90 days HPI HPI Comments History of Present Illness Details Fredis is a very pleasant 43 year old male patient of Dr. Zhu. He has a past medical history of obesity, sleep apnea, hypothyroidism, and hypercholesteremia. He presents to the office today for follow-up of his hypogonadism. Of note, patient was seen approximately 4 months at which time he was started on 5 mg of Cialis daily. In discussion with the patient today he reports to be doing and feeling well. Recent testosterone results reviewed with the patient today. 07/02--401. 12/29--Estradiol --56 03/01--FSH--2.0, LH--2.2, prolactin--5.4, total testosterone--241, free testosterone--39.5, SHBG--30, DHEA sulfate--208. 12/29 Testosterone--227 07/31 PSA--0.3 When asked patient reports to be doing and feeling well. He denies any signs or symptoms of hypogonadism. He reports that although he did not have any bothersome issues or signs and symptoms of hypogonadism he does feel improvement overall mood and erections with 5 mg of Cialis daily. He denies any bothersome issues with his urination. He does report to be CPAP compliant since 2018. He discusses attempting to lose weight and is going for daily walks. He discusses losing approximately 70lb in the last 5 months. Discussed at length potential causes for hypogonadism. In office urinalysis results reviewed with the patient today. He otherwise offers no other issues or concerns at this time. [facility] Medical History Sleep apnea Upper respiratory tract infection Patient is full code Surgical History History of surgical removal of lesion History of cosmetic surgery History of tonsillectomy and adenoidectomy History of appendectomy Family History Father CVD (cardiovascular disease) Hyperthyroidism Melanoma Mother Aortic valve replaced CVD (cardiovascular disease) Maternal Grandfather Myocardial infarction Brother Liver transplant status Biliary sclerosis Social History Housing: House Alcohol intake: current Alcohol intake frequency: holidays/special occasions only Patient Tobacco Use Status: Never used Tobacco Tobacco use type: Cigarette e-Cigarette/Vaping Use: Never Used Second Hand Smoke Exposure: No service: No Current occupational status: employed Current occupation: [employer] Cognitive needs: No Hearing needs: No Vision needs: No Review of Systems Const Reports as per HPI Eyes Reports no additional complaints ENT Reports as per HPI Card Reports as per HPI Resp Reports as per HPI GI Reports as per HPI Reports as per HPI Neuro Reports no additional complaints Psych Reports no additional complaints Endo Reports as per HPI Physical Exam Const General: cooperative, healthy appearing, comfortable, no acute distress, well developed, alert and awake Nutritional Appearance: obese Orientation/consciousness: patient oriented x3 Limitations: no limitations HEENT Head: Yes normal to inspection, Yes normocephalic and Yes atraumatic Ears: hearing grossly normal bilaterally Eyes General: appearance normal, both eyes and all related structures Neck Neck: Yes normal visual inspection and Yes trachea midline Chest Chest palpation & inspection: normal inspection of the chest Resp Effort & Inspection: normal respiratory effort and able to speak in complete sentences Cardio Rate: regular rate GI Inspection: Yes normal to inspection General: Yes no CVA tenderness Back/Spine/Pelvis Back: no CVA tenderness Skin General skin exam: no rashes or lesions noted Neuro General: patient oriented x3 Extrem General: Yes normal to inspection Psych Appearance: grossly normal and well kempt Mental Status: mental status grossly normal Speech and movement: Normal speech and movement present and Clear speech present Affect: normal affect Attitude: cooperative Thought process: Normal thought process present Thought content: Normal thought content present Insight: Good insight present (Psych) Judgement: Good judgement present (Psych) Results AMB Urinalysis, Automated UA Leukoctes 0 Darren/uL Last Edit by Ana Paula Chappell on 06/25/23 10:58 UA Nitrite Negative Last Edit by HEALBEivelisse Lenovojeremy on 06/25/23 10:58 UA Urobilinogen 0.2 mg/dL Last Edit by [employer] Hotel Bar[employer] Networkjeremy on 06/25/23 10:58 UA Protein 0 mg/dL Last Edit by [employer] Networkjeremy on 06/25/23 10:58 UA pH 5.5 Last Edit by [employer]remy on 06/25/23 10:58 UA Blood 0 Kenan/uL Last Edit by [employer] Network[employer]remy on 06/25/23 10:58 UA Specific [place] 1.020 Last Edit by [employer] Networkjeremy on 06/25/23 10:58 UA Ketone Negative Last Edit by [employer]y on 06/25/23 10:58 UA Bilirubin 0 mg/dL Last Edit by [employer] Network[employer]y on 06/25/23 10:58 UA Glucose 0 mg/dL Last Edit by Ask Ziggy on 06/25/23 10:58 Results Reviewed Results Reviewed: Laboratory Last Values Urine pH (Auto) 5.5 06/25/23 10:42 Specific [place] (Auto) 1.020 06/25/23 10:42 Urine Protein (Auto) 0 mg/dL 06/25/23 10:42 Glucose (UA)(Auto) 0 mg/dL 06/25/23 10:42 Urine Ketones (Auto) Negative 06/25/23 10:42 Urine Blood (Auto) 0 Kenan/uL 06/25/23 10:42 Urine Nitrite (Auto) Negative 06/25/23 10:42 Urine Bilirubin (Auto) 0 mg/dL 06/25/23 10:42 Urine Urobilinogen (Auto) 0.2 mg/dL 06/25/23 10:42 Leukocyte Esterase (Auto) 0 Darren/uL 06/25/23 10:42 Assessment & Plan Assessment & Plan (1) Hypogonadism in male: Code(s): E29.1 - Testicular hypofunction (2) Low testosterone in male: Code(s): R79.89 - Other specified abnormal findings of blood chemistry Plan In office urinalysis results reviewed with the patient today; as noted above. Recent lab results reviewed with the patient today; as noted above. Discussed at length potential causes for hypogonadism. Discussed importance of compliance with CPAP, weight loss, adequate sleep, and daily activity for improvement in testosterone levels as well as overall health and well-being. Continue 5 mg of Cialis daily; as discussed and prescribed. Will obtain redraw of testosterone free and total in 6 months Patient denies any bothersome urinary issues or concerns at this time. Follow-up in 6 month with labs to be completed prior; or sooner with any issues, concerns, and or questions. Orders: Orders AMB Urinalysis Automated Today Z13.9 - Encounter for screening, unspecified Testosterone, Free/Total 6 Months E29.1 - Testicular hypofunction Patient Instructions: The patient had an opportunity to ask questions regarding the treatment plan. All questions were answered. Physical exam, labs, and imaging were discussed and reviewed in detail. As well as risks, benefits, and discussion of treatment choices. No major barriers to understanding were identified. The patient expressed understanding and agreement with the above treatment plan. The patient was made aware they should contact our office by phone for worsening of their current condition, the appearance of new symptoms, or with any questions or concerns. Compliance is encouraged with any medications and follow up testing that is ordered. It is a privilege to be allowed the opportunity to participate in? your urological care.? Again, if you have any questions or concerns If you have any questions or concerns please do not hesitate to contact me. The office is [phone]. This note is constructed using voice recognition software. While every effort has been made to ensure accuracy packaging machine supplies distributor errors may have been included. Yours sincerely, GIULIANA Arias Coding Level of Care Code Est Pt Level 3 (60779) Diagnoses Hypogonadism in male E29.1 Low testosterone in male R79.89
== END 2023-06-25 11:08 | disposition home or self-care (01) ==
PROVIDERS: PCP Physician Assistant; Visit Provider Nurse Practitioner Family
DX: E29.1 Testicular hypofunction (principal); R79.89 Other specified abnormal findings of blood chemistry; Z13.9 Encounter for screening, unspecified
CPT/HCPCS: 99213

== ENCOUNTER → 2023-06-25 10:34 | Outpatient (BNVA) | payer OTHER, SELFPAY | PROVIDERS: PCP Physician Assistant; Visit Provider Nurse Practitioner Family | DX: E29.1 Testicular hypofunction (principal); R79.89 Other specified abnormal findings of blood chemistry | CPT/HCPCS: 81003 ==

== ENCOUNTER 2023-11-12 06:57 | Outpatient (REF) | payer OTHER, SELFPAY ==
[2023-11-12 08:18] LABS: Alanine Aminotransferase 31 U/L (0-40); Albumin Level 4.3 g/dL (3.5-5.0); Alkaline Phosphatase 74 U/L (39-117); Anion Gap 13 (12-20); Aspartate Amino Transferase 18 U/L (5-37); Bilirubin Total 0.6 mg/dL (0.0-1.0); Blood Urea Nitrogen 11 mg/dL (9-16); Calcium 9.9 mg/dL (8.4-10.2); Carbon Dioxide 28 mmol/L (22-29); Chloride 103 mmol/L (96-108); Cholesterol 148 mg/dL (<200); Estimated Glomerular Filt Rate > 60; Glucose Fasting 89 mg/dL (60-99); HDL Cholesterol 37 mg/dL (>40); LDL Cholesterol Calculated 66 mg/dL (<100); Sodium 140 mmol/L (135-145); Total Protein 7.3 g/dL (6.5-8.0); Triglycerides 227 mg/dL (<150)
[2023-11-12 08:49] LABS: Microalbum/Creatinine Ratio Ur 7.7 ug/mg cr (<30)
== END 2023-11-12 06:58 | disposition home or self-care (01) ==
LOC: HO.LAB 06:57
PROVIDERS: PCP Physician Assistant; Visit Provider Physician Assistant
DX: I10 Essential (primary) hypertension (principal); E78.2 Mixed hyperlipidemia; E03.9 Hypothyroidism, unspecified
CPT/HCPCS: 36415; 80053; 80061; 82043; 82570; 84443

== ENCOUNTER 2023-12-16 06:11 | Outpatient (REF) | payer OTHER, SELFPAY ==
[2023-12-20 19:23] LABS: Testosterone, Free 61.3 pg/mL (35.0-155.0); Testosterone, Total 398 ng/dL (250-1100)
== END 2023-12-16 06:12 | disposition home or self-care (01) ==
LOC: HO.LAB 06:11
PROVIDERS: PCP Physician Assistant; Visit Provider Nurse Practitioner Family
DX: E29.1 Testicular hypofunction (principal)
CPT/HCPCS: 36415; 84402; 84403

== ENCOUNTER 2023-12-30 10:25 | Outpatient (AMB) | payer OTHER, SELFPAY ==
--- NOTE | 2023-12-30 10:27 | MHC.OFFVIS ---
Intake Visit Reasons: 6m/testo(set) Intake Note: Patient presents today for follow up on: Low Testosterone, Hypogonadism, Lab Results Testosterone:398 Free Testosterone: 61.3 Urology Medications: tadalafil Blood Thinner: none Store Promoter Required: No Accompanied by: Self / Same As Patient Allergies penicillin V Allergy (Unknown, Verified 12/30/23 21:13) hives Medication List - Last Reconciled 12/30/23 by ISS[facility] atorvastatin 80 mg PO DAILY cholecalciferol (vitamin D3) 125 mcg PO DAILY levothyroxine 125 mcg PO DAILY 90 days lisinopril 5 mg PO DAILY 90 days loratadine (Claritin) 10 mg PO DAILY multivitamin 1 tab PO DAILY semaglutide (weight loss) (Wegovy) mg subcut tadalafil (Cialis) 5 mg PO DAILY 90 days HPI Comments Details: Fredis is a very pleasant 43 year old male patient of Dr. Zhu. He has a past medical history of obesity, sleep apnea, hypothyroidism, and hypercholesteremia. He presents to the office today for follow-up of his hypogonadism. In discussion with the patient today he reports to be doing and feeling well. Recent testosterone results reviewed with the patient today. Testosterone: 12/29 227, 03/01 241, 07/02 401, 12/30 398 Free testosterone: 12/29 30.0, 03/01 39.5, 07/02 54.1, 12/30 61.3 Estradiol 12/29 56 03/01 FSH 2.0, LH 2.2, Prolactin 5.4, SHBG 30, DHEA sulfate 208. 07/31 PSA 0.3 When asked patient reports to be doing and feeling well. He denies any signs or symptoms of hypogonadism. He reports that although he did not have any bothersome issues or signs and symptoms of hypogonadism he does feel improvement overall mood and erections with 5 mg of Cialis daily. He denies any bothersome issues with his urination. He does report to be CPAP compliant since 2018. He discusses attempting to lose weight and is going for daily walks. He reports having lost approximately 100 lb intentionally over the last year. Discussed at length potential causes for hypogonadism. In office urinalysis results reviewed with the patient today. He otherwise offers no other issues or concerns at this time. [facility] Medical History Sleep apnea Upper respiratory tract infection Patient is full code Surgical History History of surgical removal of lesion History of cosmetic surgery History of tonsillectomy and adenoidectomy History of appendectomy Family History Father CVD (cardiovascular disease) Hyperthyroidism Melanoma Mother Aortic valve replaced CVD (cardiovascular disease) Maternal Grandfather Myocardial infarction Brother Liver transplant status Biliary sclerosis Social History Housing: House Alcohol intake: current Alcohol intake frequency: holidays/special occasions only Patient Tobacco Use Status: Never used Tobacco Tobacco use type: Cigarette e-Cigarette/Vaping Use: Never Used Second Hand Smoke Exposure: No service: No Current occupational status: employed Current occupation: [employer] Cognitive needs: No Hearing needs: No Vision needs: No Review of Systems Const Reports as per HPI Eyes Reports no additional complaints ENT Reports as per HPI Card Reports as per HPI Resp Reports as per HPI GI Reports as per HPI Reports as per HPI Neuro Reports no additional complaints Psych Reports no additional complaints Endo Reports as per HPI Physical Exam Const General: cooperative, healthy appearing, comfortable, no acute distress, well developed, alert and awake Nutritional Appearance: obese Orientation/consciousness: patient oriented x3 Limitations: no limitations HEENT Head: Yes normal to inspection, Yes normocephalic and Yes atraumatic Ears: hearing grossly normal bilaterally Eyes General: appearance normal, both eyes and all related structures Neck Neck: Yes normal visual inspection and Yes trachea midline Chest Chest palpation & inspection: normal inspection of the chest Resp Effort & Inspection: normal respiratory effort and able to speak in complete sentences Cardio Rate: regular rate GI Inspection: Yes normal to inspection General: Yes no CVA tenderness Back/Spine/Pelvis Back: no CVA tenderness Skin General skin exam: no rashes or lesions noted Neuro General: patient oriented x3 Extrem General: Yes normal to inspection Psych Appearance: grossly normal and well kempt Mental Status: mental status grossly normal Speech and movement: Normal speech and movement present and Clear speech present Affect: normal affect Attitude: cooperative Thought process: Normal thought process present Thought content: Normal thought content present Insight: Fair insight present (Psych) Judgement: Fair judgement present (Psych) Results AMB Urinalysis, Automated UA Leukoctes 0 Darren/uL Last Edit by Ana Paula Chappell on 12/30/23 10:48 UA Nitrite Negative Last Edit by Ana Paula Chappell on 12/30/23 10:48 UA Urobilinogen 0.2 mg/dL Last Edit by Ana Paula Chappell on 12/30/23 10:48 UA Protein 0 mg/dL Last Edit by Ana Paula Chappell on 12/30/23 10:48 UA pH 6.0 Last Edit by Ana Paula Chappell on 12/30/23 10:48 UA Blood 0 Kenan/uL Last Edit by Ana Paula Chappell on 12/30/23 10:48 UA Specific [place] 1.015 Last Edit by Ana Paula Chappell on 12/30/23 10:48 UA Ketone Negative Last Edit by Ana Paula Chappell on 12/30/23 10:48 UA Bilirubin 0 mg/dL Last Edit by Ana Paula Chappell on 12/30/23 10:48 UA Glucose 0 mg/dL Last Edit by Ana Paula Chappell on 12/30/23 10:48 Results Reviewed Results Reviewed: Laboratory Last Values Urine pH (Auto) 6.0 12/30/23 10:28 Specific [place] (Auto) 1.015 12/30/23 10:28 Urine Protein (Auto) 0 mg/dL 12/30/23 10:28 Glucose (UA)(Auto) 0 mg/dL 12/30/23 10:28 Urine Ketones (Auto) Negative 12/30/23 10:28 Urine Blood (Auto) 0 Kenan/uL 12/30/23 10:28 Urine Nitrite (Auto) Negative 12/30/23 10:28 Urine Bilirubin (Auto) 0 mg/dL 12/30/23 10:28 Urine Urobilinogen (Auto) 0.2 mg/dL 12/30/23 10:28 Leukocyte Esterase (Auto) 0 Darren/uL 12/30/23 10:28 Assessment & Plan Assessment & Plan (1) Hypogonadism in male: Code(s): E29.1 - Testicular hypofunction Category: Medical (2) Low testosterone in male: Code(s): R79.89 - Other specified abnormal findings of blood chemistry Category: Medical Plan In office urinalysis results reviewed with the patient today; as noted above. Recent lab results reviewed with the patient today; as noted above. Discussed at length potential causes for hypogonadism. Discussed importance of compliance with CPAP, weight loss, adequate sleep, and daily activity for improvement in testosterone levels as well as overall health and well-being. Continue 5 mg of Cialis daily; as discussed and prescribed. Will obtain redraw of testosterone free and total in 6 months Patient denies any bothersome urinary issues or concerns at this time. Follow-up in 6 month with labs to be completed prior; or sooner with any issues, concerns, and or questions. Orders: Orders AMB Urinalysis Automated Today Z13.9 - Encounter for screening, unspecified Testosterone, Free/Total 6 Months E29.1 - Testicular hypofunction, R79.89 - Other specified abnormal findings of blood chemistry Patient Instructions: The patient had an opportunity to ask questions regarding the treatment plan. All questions were answered. Physical exam, labs, and imaging were discussed and reviewed in detail. As well as risks, benefits, and discussion of treatment choices. No major barriers to understanding were identified. The patient expressed understanding and agreement with the above treatment plan. The patient was made aware they should contact our office by phone for worsening of their current condition, the appearance of new symptoms, or with any questions or concerns. Compliance is encouraged with any medications and follow up testing that is ordered. It is a privilege to be allowed the opportunity to participate in? your urological care.? Again, if you have any questions or concerns If you have any questions or concerns please do not hesitate to contact me. The office is [phone]. This note is constructed using voice recognition software. While every effort has been made to ensure accuracy motorboat mechanic inboard/outboard errors may have been included. Yours sincerely, GIULIANA Arias Coding Level of Care Code Est Pt Level 3 (95193) Diagnoses Hypogonadism in male E29.1 Low testosterone in male R79.89
== END 2023-12-30 11:04 | disposition home or self-care (01) ==
PROVIDERS: PCP Physician Assistant; Visit Provider Nurse Practitioner Family
DX: E29.1 Testicular hypofunction (principal); R79.89 Other specified abnormal findings of blood chemistry; Z13.9 Encounter for screening, unspecified
CPT/HCPCS: 99213

== ENCOUNTER → 2023-12-30 10:25 | Outpatient (BNVA) | payer OTHER, SELFPAY | PROVIDERS: PCP Physician Assistant; Visit Provider Nurse Practitioner Family | DX: E29.1 Testicular hypofunction (principal) | CPT/HCPCS: 81003 ==

== ENCOUNTER 2024-02-05 10:58 | Outpatient (AMB) | payer OTHER, SELFPAY ==
--- NOTE | 2024-02-05 11:15 | A.OFFPC_ITS ---
Vital Signs 02/05/24 11:19 Height 6 ft Weight 319 lb BMI 43.3 BP 108/72 Blood Pressure Location Lt brachial Position Sitting Pulse 84 Pulse Source Pulse Oximeter Pulse Oximetry (%) 96 Oxygen Delivery Method Room Air Intake Visit Reasons: PE/ Hypothyroid f/u Signal Timer Required: No Accompanied by: Self / Same As Patient Allergies penicillin V Allergy (Unknown, Verified 02/05/24 11:29) hives Medication List - Last Reconciled 02/05/24 by Luke Zhu PA-C atorvastatin 80 mg PO DAILY cholecalciferol (vitamin D3) 125 mcg PO DAILY levothyroxine 125 mcg PO DAILY 90 days lisinopril 5 mg PO DAILY 90 days loratadine (Claritin) 10 mg PO DAILY multivitamin 1 tab PO DAILY semaglutide (weight loss) (Wegovy) mg subcut tadalafil (Cialis) 5 mg PO DAILY 90 days Tobacco use date assessed: 02/05/24 Dental Screening Dental Screen Date: 02/05/24 Did you have a dental visit in the last 12 months?: Yes Did you have a dental problem in the last 6 months where you did not have access to dental care?: No Was dental information given to patient?: Patient has dentist HPI PE/ Hypothyroid f/u 2 HPI Details Patient is a 43 year old male here today for routine annual physical ? Patient has a past medical history significant for hypothyroidism, hypercholesterolemia, microalbuminuria, obesity, hypertension, VICKIE,. Concern--> reports over the last 3 weeks feeling a sharp pain over the back side of his head. He denies any trauma to his head. Does wear CPAP machine at the head strips late just below where he is feeling his pain. He reports a sharp quality pain in the area of a skin fold in the back of his head. Otherwise denies any vision issues, headaches, nausea or any other neurological focal deficits. ? .. ? Hypertension: Patient continues on lisinopril 5 mg and blood pressure today on the low side. He denies any fatigue, syncopal episodes etc.. . Does not monitor blood pressure at [facility]. Fortunately he is asymptomatic without any headache, vision issues or chest pains. .. VICKIE: Continues on nightly use of his obstructive sleep apnea machine with good effect on sleep. .. Obesity:? Continues to go to weight management program. He is on Wegovy 2.4 mg weekly. Has been able to lose a significant amount of weight. Today's weight at 319 and BMI 43. Does see a provider whom provides him weight loss injection on a daily basis. Appetite has been much difference in starting medication.. .. Hypogonadism: He has establish care with a urologist. Has been started on Cialis 5 mg. Most recent testosterone level normalized with weight loss in the addition of Cialis. ? .. ? HYpothyroid:? Most recent TSH stable. he has been clinically euthyroid. ? Will continue to follow TSH ? .. ? HLD: Has been stable with statin therapy.?? No reported side effects f rom statin therapy. Vaccine : Up-to-date with tetanus, COVID flu. Considering pneumonia vaccine though declines today. Laboratory Tests 06/10/23 11/12/23 11/12/23 06:55 07:09 07:15 TSH 3.80 2.20 Total Testosterone 401 Urine Microalbumin 7.0 12/16/23 06:21 TSH Total Testosterone 398 Urine Microalbumin PFS Medical History Sleep apnea Upper respiratory tract infection Patient is full code Surgical History History of surgical removal of lesion History of cosmetic surgery History of tonsillectomy and adenoidectomy History of appendectomy Family History Father CVD (cardiovascular disease) Hyperthyroidism Melanoma Mother Aortic valve replaced CVD (cardiovascular disease) Maternal Grandfather Myocardial infarction Brother Liver transplant status Biliary sclerosis Social History (Updated 02/05/24 @ 11:32 by Luke Zhu PA-C) Housing: House Alcohol intake: current Alcohol intake frequency: holidays/special occasions only Alcohol type: beer Patient Tobacco Use Status: Never used Tobacco Tobacco use type: Cigarette e-Cigarette/Vaping Use: Never Used Second Hand Smoke Exposure: No service: No Current occupational status: employed 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 Cognitive needs: No Hearing needs: No Vision needs: No Questionnaire PHQ-9 Over the last 2 weeks, how often have you been bothered by any of the following problems? 1. Little interest or pleasure in doing things: not at all 2. Feeling down, depressed, or hopeless: not at all 3. Trouble falling or staying asleep, or sleeping too much: not at all 4. Feeling tired or having little energy: not at all 5. Poor appetite or overeating: not at all 6. Feeling bad about yourself - or that you are a failure or have let yourself or your family down: not at all 7. Trouble concentrating on things, such as reading the newspaper or watching television: not at all 8. Moving or speaking so slowly that other people could have noticed. Or the op posite - being so fidgety or restless that you have been moving around a lot more than usual: not at all 9. Thoughts that you would be better off or of hurting yourself in some way: not at all Total score: 0 Depression Screening Interpretation: Negative Depression Screening Done: Yes 87240 - PHQ-9 Billing: Yes Source: Developed by Drs. Rei Wolfe, Tessa Powell, Hussain Meza and colleagues, with an educational manuel from [employer]. Thrive Questionnaire Date Thrive assessed: 02/05/24 I am a: Patient What is your living situation today?: I have a steady place to live Within the past 12 months, did the food you bought not last and you didn't have the money to get more?: Never true Within the past 12 months, did you worry whether your food would run out before you got money to buy more?: Never true Do you have trouble paying for medicines?: No Do you have trouble getting transportation to medical appointments?: No Do you have trouble paying your heating and electricity bill?: No Do you have trouble taking care of your child, family member or friend?: No Do you have trouble with day-to-day activities such as bathing, preparing meals, shopping, managing finances, etc.?: No Are you currently unemployed and looking for a job?: No Are you interested in more education?: No Please select the resources that you would like help with: None Currently or been in a relationship where the following occur: No concerns reported THRIVE Score: 0 AUDIT C Alcohol Use Questionnaire (AUDIT-C) 1. How often do you have a drink containing alcohol?: 2-4 times a month 2. How many drinks containing alcohol do you have on a typical day when you are drinking?: 3 or 4 3. How often do you have six or more drinks on one occasion?: Less than monthly Total Score: 4 DIANE-7 AMB Questionnaire DIANE-7 Date DIANE - 7 assessed: 02/05/24 Feeling nervous, anxious, or on edge: 0 = Not at all Not being able to stop or control worryin = Not at all Worrying too much about different things: 0 = Not at all Trouble relaxin = Not at all Being so restless that it is hard to sit still: 0 = Not at all Becoming easily annoyed or irritable: 1 = Several days Feeling afraid as if something awful might happen: 0 = Not at all Total DIANE-7 score (0-4 normal; 5-9 mild; 10-14 moderate; 15-21 severe): 1 Source: Developed by Drs. Rei Wolfe, Tessa Powell, Hussain Meza and colleagues, with an educational manule from [employer]. DIANE-7 Assessment Billing DIANE-7 Assessment Tool: DIANE-7 Assessment 60797 Review of Systems Const Denies body aches, Denies chills, Denies excessive sweating, Denies fatigue, Denies fever(s) and Denies headache(s) Eyes Denies blurry vision ENT Denies dysphagia, Denies vertigo, Denies dizziness, Denies headache(s), Denies hearing loss and Denies tinnitus Card Denies chest pain, Denies chest pain with activity, Denies syncope, Denies irregular heart rhythm and Denies dyspnea Resp Denies chest congestion, Denies cough, Denies hemoptysis, Denies dyspnea and Denies wheezing GI Denies abdominal pain, Denies melena, Denies hematochezia, Denies coffee ground emesis, Denies dysphagia, Denies diarrhea, Denies nausea and Denies vomiting Denies difficulty urinating, Denies dysuria, Denies urinary frequency, Denies urinary hesitancy and Denies urinary urgency Musc Denies arthralgias, Denies limited range of motion, Denies muscle cramps and Denies muscle weakness Skin/Breast Denies rash and Denies skin ulcer Neuro Denies Abnormal speech present, Denies confusion, Denies vertigo, Denies dizziness, Denies syncope, Denies headache(s), Denies memory loss and Denies seizure-like activity Psych Denies anxiety, Denies confusion, Denies depression, Denies memory loss, Denies panic attacks and Denies paranoia Endo Denies excessive sweating, Denies fatigue, Denies flushing, Denies polydipsia and Denies polyuria Aller/Immun Denies wheezing Physical exam (Primary Care) Vital Signs: Last Vital Signs Pulse 84 02/05/24 11:19 BP 108/72 02/05/24 11:19 Pulse Ox 96 02/05/24 11:19 Oxygen Delivery Method Room Air 02/05/24 11:19 BMI result Body Mass Index 43.3 Tobacco/Smoking Status: Tobacco use Status Tobacco use date assessed 02/05/24 02/05/24 11:21 Patient Tobacco Use Status Never used Tobacco 02/05/24 11:32 Tobacco use type Cigarette 02/05/24 11:32 e-Cigarette/Vaping Use Never Used 02/05/24 11:32 PHQ-9: PHQ-9 Score PHQ-9: Total score 0 02/05/24 11:34 Depression Screening Interpretation: Negative Thrive Assessment: Date of Thrive Assessment Date Thrive assessed 02/05/24 02/05/24 11:17 Currently or been in a relationship where the following occur: No concerns reported Const General: cooperative, comfortable, no acute distress, alert and awake; No confu nicci Orientation/consciousness: oriented to person, oriented to place, patient oriented x3 and No confusion HENMT Head: Yes normocephalic Ears: external ears normal and TM's normal bilaterally Face and sinus: No sinus tenderness Mouth: Normal oral and palatal mucosa present and tongue normal Teeth and gingiva: dentition normal and gingiva normal Throat: Yes posterior oropharynx normal, Yes tonsils normal and Yes uvula midline Eyes Conjunctivae: conjunctivae normal Sclerae: sclerae normal Pupils: Equal, round and reactive pupils present EOM: EOMs intact bilaterally Direct Ophthalmoscopy: No no photophobia Neck Neck: Yes no lymphadenopathy, No tender and Yes no JVD Thyroid: Thyroid normal Carotids: no bruits Chest Chest palpation & inspection: no tenderness Resp Effort & Inspection: normal respiratory effort, no audible wheezes, not labored and no stridor Auscultation: no crackles, no rales, no rhonchi and no wheezes Cardio Jugular venous distension: no JVD Rate: regular rate, not bradycardic and not tachycardic Rhythm: regular rhythm Bruits: no carotid bruits Peripheral pulses: Peripheral pulses 2+ throughout GI Inspection: Yes normal to inspection, No abdominal wall ecchymosis and No visible herniation Palpation (GI): Soft to palpation, nontender, no guarding, not rigid and No hepatosplenomegaly present Auscultation: normoactive bowel sounds General: Yes no CVA tenderness Back/Spine/Pelvis Back: no CVA tenderness and No back tenderness Cervical Spine: cervical ROM normal Thoracic/Lumbar Spine: thoracic and lumbar spine normal to inspection, straight leg raise negative bilaterally, No thoraco-lumbar ROM limited and No lumbar spinal tenderness Skin Lesions: no lesions Rashes: no rashes Wounds: no wounds Neuro General: oriented to person, oriented to place, patient oriented x3, CN's II-XI intact bilaterally and No confusion Cranial nerves: Yes Equal, round and reactive pupils present and Yes Normal accommodation reflex present Cognition (Neuro): normal cognition Speech: No Abnormal speech present Gait exam (Neuro): Normal gait present Motor exam (neuro): 5/5 motor strength present throughout Extrem Right upper extremity: full ROM; no cyanosis Left upper extremity: full ROM; no cyanosis Right lower extremity: no edema Left lower extremity: no edema Psych Appearance: grossly normal Mental Status: mental status grossly normal Affect: normal affect Attitude: cooperative Thought process: Normal thought process present Assessment and Plan Assessment & Plan (1) Annual physical exam: Code(s): Z00.00 - Encounter for general adult medical examination without abnormal findings (2) Obese: Code(s): E66.9 - Obesity, unspecified Qualifiers: Body mass index: BMI 45.0-49.9 Obesity classification: adult class 3 (BMI >= 40) Obesity type: due to excess calories Serious obesity comorbidity presence: without serious comorbidity Qualified Code(s): E66.01 - Morbid (severe) obesity due to excess calories; Z68.42 - Body mass index [BMI] 45.0-49.9, adult Plan: Has lost significant amount of weight since joining weight watchers program. He continues on Wegovy 2.4 mg without any side effect. Has been able to lose significant of weight. Has lost a significant amount of weight. (3) HTN (hypertension): Code(s): I10 - Essential (primary) hypertension Qualifiers: Hypertension type: essential hypertension Qualified Code(s): I10 - Essential (primary) hypertension Plan: Blood pressure readings today in office on the low side. Continues with lisinopril 5 mg. Does not regularly monitor his blood pressure at home and advised to do so to confirms he is not having low blood pressures at home.. Advised to monitor blood pressure at home with goal blood pressure be below 140/90. (4) VICKIE (obstructive sleep apnea): Comment: on CPAP Code(s): G47.33 - Obstructive sleep apnea (adult) (pediatric) Plan: Patient continues to be compliant with nightly use of his CPAP machine. He reports good effect on sleep and daytime somnolence. I advised he continue use of his nightly CPAP machine. (5) HLD (hyperlipidemia): Code(s): E78.5 - Hyperlipidemia, unspecified Qualifiers: Hyperlipidemia type: mixed hyperlipidemia Qualified Code(s): E78.2 - Mixed hyperlipidemia Plan: Patient continues on high potency statin therapy with good effect on reducing his total cholesterol and LDL. Goal LDL to be below 160. (6) Hypothyroidism: Code(s): E03.9 - Hypothyroidism, unspecified Qualifiers: Hypothyroidism type: unspecified Qualified Code(s): E03.9 - Hypothyroidism, unspecified Plan: Patient continues on levothyroxine 125 mcg with good effect. Most recent TSH stable. Will continue to follow TSH to assure normal. (7) Pain head: Code(s): R51.9 - Headache, unspecified Qualifiers: Headache chronicity pattern: unspecified pattern Headache type: unspecified Intractability: not intractable Qualified Code(s): R51.9 - Headache, unspecified Plan: As per HPI patient has had pain seems to be musculoskeletal. Advised on doing head and neck stretches on his own. Please call back if symptoms worsen. Will consider CTA head. Orders: Orders Lipid Panel 6 Months E78.2 - Mixed hyperlipidemia TSH reflex Free T4 6 Months E03.9 - Hypothyroidism, unspecified Comprehensive Tovey. Panel Fast 6 Months I10 - Essential (primary) hypertension Complete Blood Count no Diff 6 Months I10 - Essential (primary) hypertension Microalbumin, Random (w Creat) 6 Months I10 - Essential (primary) hypertension Patient Instructions: Goal: Blood pressure to remain below 140/90, LDL to remain below 130. Barriers: Adherence to physical activity and healthy eating habits Coding Level of Care Code Est Pt Prev Care 40-64y(70042) Diagnoses Annual physical exam Z00.00 Class 3 severe obesity due to excess calories without serious comorbidity with body mass index (BMI) of 45.0 to 49.9 in adult E66.01; Z68.42 Body mass index: BMI 45.0-49.9 Obesity classification: adult class 3 (BMI >= 40) Obesity type: due to excess calories Serious obesity comorbidity presence: without serious comorbidity Essential hypertension I10 Hypertension type: essential hypertension VICKIE (obstructive sleep apnea) G47.33 Mixed hyperlipidemia E78.2 Hyperlipidemia type: mixed hyperlipidemia Hypothyroidism, unspecified type E03.9 Hypothyroidism type: unspecified Nonintractable headache, unspecified chronicity pattern, unspecified headache type R51.9 Headache chronicity pattern: unspecified pattern Headache type: unspecified Intractability: not intractable Additional Codes DIANE-7 Assessment Billing - DIANE-7 Assessment Tool: DIANE-7 Assessment 87505 ([id number])
[2024-02-05 11:19] VITALS: BP 108/72; PULSE 84; O2SAT 96; BMI 43.3
== END 2024-02-05 11:46 | disposition home or self-care (01) ==
PROVIDERS: PCP Physician Assistant; Visit Provider Physician Assistant
DX: Z00.00 Encounter for general adult medical examination without abnormal findings (principal); E66.01 Morbid (severe) obesity due to excess calories; Z68.42 Body mass index [BMI] 45.0-49.9, adult; I10 Essential (primary) hypertension; G47.33 Obstructive sleep apnea (adult) (pediatric); E78.2 Mixed hyperlipidemia; E03.9 Hypothyroidism, unspecified; R51.9 Headache, unspecified
CPT/HCPCS: 99396

== ENCOUNTER 2024-06-16 06:33 | Outpatient (REF) | payer OTHER, SELFPAY ==
[2024-06-20 17:14] LABS: Testosterone, Free 70.5 pg/mL (35.0-155.0); Testosterone, Total 486 ng/dL (250-1100)
== END 2024-06-16 06:34 | disposition home or self-care (01) ==
LOC: HO.LAB 06:33
PROVIDERS: PCP Physician Assistant; Visit Provider Nurse Practitioner Family
DX: R79.89 Other specified abnormal findings of blood chemistry (principal); E29.1 Testicular hypofunction
CPT/HCPCS: 36415; 84402; 84403

== ENCOUNTER 2024-06-29 10:21 | Outpatient (AMB) | payer OTHER, SELFPAY ==
--- NOTE | 2024-06-29 10:36 | A.OFFVIS_ITS ---
Intake Visit Reasons: 6m/Testo(set) Intake Note: Patient presents today for follow up on: Low Testosterone, Hypogonadism, Lab Results Testosterone: 486 Free Testosterone:70.5 Urology Medications: tadalafil Blood Thinner: none Certified Professional Ergonomist Required: No Accompanied by: Self / Same As Patient Allergies penicillin V Allergy (Unknown, Verified 06/29/24 11:03) hives Medication List - Last Reviewed 06/29/24 by Ana Paula Chappell atorvastatin 80 mg PO DAILY cholecalciferol (vitamin D3) 125 mcg PO DAILY levothyroxine 125 mcg PO DAILY 90 days lisinopril 5 mg PO DAILY 90 days loratadine (Claritin) 10 mg PO DAILY multivitamin 1 tab PO DAILY tadalafil (Cialis) 5 mg PO DAILY 90 days tirzepatide (weight loss) (Zepbound) mg subcut HPI Comments Details: Fredis is a very pleasant 44 year old male patient of Dr. Zhu. He has a past medical history of obesity, sleep apnea, hypothyroidism, and hypercholesteremia. He presents to the office today for follow-up of his hypogonadism. In discussion with the patient today he reports to be doing and feeling well. Recent testosterone results reviewed with the patient today. Testosterone: 12/29 227, 03/01 241, 07/02 401, 12/30 398, 07/03 486 Free testosterone: 12/29 30.0, 03/01 39.5, 07/02 54.1, 12/30 61.3, 07/03 70.5 Estradiol 12/29 56 03/01 FSH 2.0, LH 2.2, Prolactin 5.4, SHBG 30, DHEA sulfate 208. 07/31 PSA 0.3 We discussed correlation of weight loss as well as daily dosing of Cialis 5 mg daily in relation to testosterone levels. He reports that although he did not have any bothersome issues or signs and symptoms of hypogonadism he does feel improvement overall mood and erections with 5 mg of Cialis daily. He denies any bothersome issues with his urination. He does report to be CPAP compliant since 2018. He discusses continuing to lose weight and go for daily walks. He reports having intentionally lost over 100 lb in the last year. We discussed at length potential causes for hypogonadism. In office urinalysis results reviewed with the patient today. He otherwise offers no other issues or concerns at this time. [facility] Medical History Sleep apnea Upper respiratory tract infection Patient is full code Surgical History History of surgical removal of lesion History of cosmetic surgery History of tonsillectomy and adenoidectomy History of appendectomy Family History Father CVD (cardiovascular disease) Hyperthyroidism Melanoma Mother Aortic valve replaced CVD (cardiovascular disease) Maternal Grandfather Myocardial infarction Brother Liver transplant status Biliary sclerosis Social History (Updated 02/05/24 @ 11:32 by Luke Zhu PA-C) Housing: House Alcohol intake: current Alcohol intake frequency: holidays/special occasions only Alcohol type: beer Patient Tobacco Use Status: Never used Tobacco Tobacco use type: Cigarette e-Cigarette/Vaping Use: Never Used Second Hand Smoke Exposure: No service: No Current occupational status: employed 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 Cognitive needs: No Hearing needs: No Vision needs: No Review of Systems Const Reports as per HPI Eyes Reports no additional complaints ENT Reports as per HPI Card Reports as per HPI Resp Reports as per HPI GI Reports as per HPI Reports as per HPI Neuro Reports no additional complaints Psych Reports no additional complaints Endo Reports as per HPI Physical Exam Const General: cooperative, healthy appearing, comfortable, no acute distress, well developed, alert and awake Nutritional Appearance: obese Orientation/consciousness: patient oriented x3 Limitations: no limitations HEENT Head: Yes normal to inspection, Yes normocephalic and Yes atraumatic Ears: hearing grossly normal bilaterally Eyes General: appearance normal, both eyes and all related structures Neck Neck: Yes normal visual inspection and Yes trachea midline Chest Chest palpation & inspection: normal inspection of the chest Resp Effort & Inspection: normal respiratory effort and able to speak in complete sentences Cardio Rate: regular rate GI Inspection: Yes normal to inspection General: Yes no CVA tenderness Back/Spine/Pelvis Back: no CVA tenderness Skin General skin exam: no rashes or lesions noted Neuro General: patient oriented x3 Extrem General: Yes normal to inspection Psych Appearance: grossly normal and well kempt Mental Status: mental status grossly normal Speech and movement: Normal speech and movement present and Clear speech present Affect: normal affect Attitude: cooperative Thought process: Normal thought process present Thought content: Normal thought content present Insight: Fair insight present (Psych) Judgement: Fair judgement present (Psych) Results AMB Urinalysis, Automated UA Leukoctes 0 Darren/uL Last Edit by Laura Sapiens on 06/29/24 11:08 UA Nitrite Last Edit by Laura Sapiens on 06/29/24 11:08 UA Urobilinogen 0.2 mg/dL Last Edit by Laura Sapiens on 06/29/24 11:08 UA Protein 0 mg/dL Last Edit by Laura Sapiens on 06/29/24 11:08 UA pH 6.0 Last Edit by Laura Sapiens on 06/29/24 11:08 UA Blood 0 Kenan/uL Last Edit by Laura Sapiens on 06/29/24 11:08 UA Specific Kake 1.015 Last Edit by Laura Sapiens on 06/29/24 11:08 UA Ketone Last Edit by Laura Sapiens on 06/29/24 11:08 UA Bilirubin 0 mg/dL Last Edit by Laura Sapiens on 06/29/24 11:08 UA Glucose 0 mg/dL Last Edit by Laura Sapiens on 06/29/24 11:08 Assessment & Plan Assessment & Plan (1) Hypogonadism in male: Code(s): E29.1 - Testicular hypofunction Category: Medical (2) Low testosterone in male: Code(s): R79.89 - Other specified abnormal findings of blood chemistry Category: Medical Plan In office urinalysis results reviewed with the patient today; as noted above. Recent lab results reviewed with the patient today; as noted above. Discussed at length potential causes for hypogonadism. Discussed importance of compliance with CPAP, weight loss, adequate sleep, and daily activity for improvement in testosterone levels as well as overall health and well-being. Continue 5 mg of Cialis daily; as discussed and prescribed. Will obtain redraw of testosterone free and total in 6 months Patient denies any bothersome urinary issues or concerns at this time. Follow-up in 6 month with labs to be completed prior; or sooner with any issues, concerns, and or questions. Orders: Orders AMB Urinalysis Automated Today Z13.9 - Encounter for screening, unspecified Testosterone, Free/Total 6 Months E29.1 - Testicular hypofunction, R79.89 - Other specified abnormal findings of blood chemistry Patient Instructions: The patient had an opportunity to ask questions regarding the treatment plan. All questions were answered. Physical exam, labs, and imaging were discussed and reviewed in detail. As well as risks, benefits, and discussion of treatment choices. No major barriers to understanding were identified. The patient expressed understanding and agreement with the above treatment plan. The patient was made aware they should contact our office by phone for worsening of their current condition, the appearance of new symptoms, or with any questions or concerns. Compliance is encouraged with any medications and follow up testing that is ordered. It is a privilege to be allowed the opportunity to participate in? your urological care.? Again, if you have any questions or concerns If you have any questions or concerns please do not hesitate to contact me. The office is [phone]. This note is constructed using voice recognition software. While every effort has been made to ensure accuracy culinary worker errors may have been included. Yours sincerely, GIULIANA Arias Coding Level of Care Code Est Pt Level 3 (14792) Diagnoses Hypogonadism in male E29.1 Low testosterone in male R79.89
== END 2024-06-29 11:07 | disposition home or self-care (01) ==
PROVIDERS: PCP Physician Assistant; Visit Provider Nurse Practitioner Family
DX: E29.1 Testicular hypofunction (principal); R79.89 Other specified abnormal findings of blood chemistry; Z13.9 Encounter for screening, unspecified
CPT/HCPCS: 99213

== ENCOUNTER → 2024-06-29 10:21 | Outpatient (BNVA) | payer OTHER, SELFPAY | PROVIDERS: PCP Physician Assistant; Visit Provider Nurse Practitioner Family | DX: E29.1 Testicular hypofunction (principal); R79.89 Other specified abnormal findings of blood chemistry | CPT/HCPCS: 81003 ==

== ENCOUNTER 2024-07-23 06:30 | Outpatient (REF) | payer OTHER, SELFPAY ==
[2024-07-23 07:15] LABS: Hematocrit 44.9 % (42.0-52.0); Hemoglobin 15.1 g/dl (14.0-18.0); Mean Corpuscular HGB Conc 33.6 g/dl (31.0-36.0); Mean Corpuscular Volume 86.2 fL (80.0-98.0); Mean Platelet Volume 10.2 fL (9.4-12.4); Platelet Count 223 X10*3/uL (160-400); Red Blood Count 5.21 X10*6/uL (4.60-5.80); Red Cell Distribution Width 12.9 % (11.0-16.0); White Blood Count 7.6 X10*3/uL (4.8-10.8)
[2024-07-23 07:46] LABS: Creatinine Urine 106.02 mg/dL; Microalbum/Creatinine Ratio Ur 4.7 ug/mg cr (<30)
[2024-07-23 07:55] LABS: Alanine Aminotransferase 63 U/L (0-40); Albumin Level 4.5 g/dL (3.5-5.0); Alkaline Phosphatase 67 U/L (39-117); Anion Gap 13 (12-20); Aspartate Amino Transferase 34 U/L (5-37); Bilirubin Total 0.8 mg/dL (0.0-1.0); Blood Urea Nitrogen 12 mg/dL (9-16); Calcium 9.5 mg/dL (8.4-10.2); Carbon Dioxide 27 mmol/L (22-29); Chloride 103 mmol/L (96-108); Cholesterol 166 mg/dL (<200); Estimated Glomerular Filt Rate > 60; Glucose Fasting 85 mg/dL (60-99); HDL Cholesterol 48 mg/dL (>40); LDL Cholesterol Calculated 95 mg/dL (<100); Potassium 4.2 mmol/L (3.3-5.1); Sodium 139 mmol/L (135-145); Total Protein 7.7 g/dL (6.5-8.0); Triglycerides 115 mg/dL (<150)
[2024-07-23 08:14] LABS: TSH reflex Free T4 3.31 uIU/mL (0.32-4.0)
== END 2024-07-23 06:31 | disposition home or self-care (01) ==
LOC: HO.LAB 06:30
PROVIDERS: PCP Physician Assistant; Visit Provider Physician Assistant
DX: I10 Essential (primary) hypertension (principal); E03.9 Hypothyroidism, unspecified; E78.2 Mixed hyperlipidemia
CPT/HCPCS: 36415; 80053; 80061; 82043; 82570; 84443; 85027

== ENCOUNTER 2024-07-26 08:24 | Outpatient (AMB) | payer OTHER, SELFPAY ==
--- NOTE | 2024-07-26 08:41 | A.OFFPC_ITS ---
Vital Signs 07/26/24 08:44 Height 6 ft Weight 305 lb BMI 41.4 BP 128/70 Blood Pressure Location Lt brachial Position Sitting Pulse 80 Pulse Source Pulse Oximeter Temp 97.8 F Temp Source Temporal Artery Scan Pulse Oximetry (%) 98 Oxygen Delivery Method Room Air Intake Visit Reasons: 6 Month F/U Intake Note: Patient is here to follow up on VICKIE, HLD, HTN. Bonding And Composite Fabricator Required: No Medical Administrative Specialist: Not Required per policy Accompanied by: Self / Same As Patient Allergies penicillin V Allergy (Unknown, Verified 07/26/24 08:50) hives Medication List - Last Reconciled 07/26/24 by Luke Zhu PA-C atorvastatin 80 mg PO DAILY cholecalciferol (vitamin D3) 125 mcg PO DAILY levothyroxine 125 mcg PO DAILY 90 days lisinopril 5 mg PO DAILY 90 days loratadine (Claritin) 10 mg PO DAILY multivitamin 1 tab PO DAILY tadalafil (Cialis) 5 mg PO DAILY 90 days tirzepatide (weight loss) (Zepbound) mg subcut Tobacco use date assessed: 07/26/24 Dental Screening Dental Screen Date: 07/26/24 Did you have a dental visit in the last 12 months?: Yes Did you have a dental problem in the last 6 months where you did not have access to dental care?: No Was dental information given to patient?: Patient has dentist HPI 6 Month F/U HPI Details Patient is a 44-year-old male here today for follow-up visit. ? Patient has a past medical history significant for hypothyroidism, hypercholesterolemia, microalbuminuria, obesity, hypertension, VICKIE, ? .. ? Hypertension: Patient continues on lisinopril 5 mg and blood pressure today on the low side. He denies any fatigue, syncopal episodes etc.. . Does not monitor blood pressure at [facility]. Fortunately he is asymptomatic without any headache, vision issues or chest pains Most recent urine without signs of microalbuminuria. .. VICKIE: Continues on nightly use of his obstructive sleep apnea machine with good effect on sleep. .. Class 3 Obesity:? Continues to go to weight management program. He continues Zepbound in his lost more weight. Today's weight at 305Lbs and BMI down at 41.4.. Has been able to lose a significant amount of weight. .. Hypogonadism: He does follow a urologist.. Has been started on Cialis 5 mg. Most recent testosterone level normalized with weight loss in the addition of Cialis. ? .. ? HYpothyroid:? Most recent TSH stable. he has been clinically euthyroid. ? Will continue to follow TSH ? .. ? HLD: Has been stable with high dose statin therapy.?? No reported side effects from statin therapy. Laboratory Tests 11/12/23 07/23/24 07/23/24 07:09 06:35 06:37 RBC 5.21 Creatinine 0.67 ALT 31 63 H AST 34 Cholesterol 166 LDL Cholesterol, C alc 95 Urine Microalbumin 5.0 PFSH Medical History Sleep apnea Upper respiratory tract infection Patient is full code Surgical History History of surgical removal of lesion History of cosmetic surgery History of tonsillectomy and adenoidectomy History of appendectomy Family History Father CVD (cardiovascular disease) Hyperthyroidism Melanoma Mother Aortic valve replaced CVD (cardiovascular disease) Maternal Grandfather Myocardial infarction Brother Liver transplant status Biliary sclerosis Social History Housing: House Alcohol intake: current Alcohol intake frequency: holidays/special occasions only Alcohol type: beer Patient Tobacco Use Status: Never used Tobacco Tobacco use type: Cigarette e-Cigarette/Vaping Use: Never Used Second Hand Smoke Exposure: No service: No Current occupational status: employed 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 1. Little interest or pleasure in doing things: not at all 2. Feeling down, depressed, or hopeless: not at all 3. Trouble falling or staying asleep, or sleeping too much: not at all 4. Feeling tired or having little energy: not at all 5. Poor appetite or overeating: not at all 6. Feeling bad about yourself - or that you are a failure or have let yourself or your family down: not at all 7. Trouble concentrating on things, such as reading the newspaper or watching television: not at all 8. Moving or speaking so slowly that other people could have noticed. Or the opposite - being so fidgety or restless that you have been moving around a lot more than usual: not at all 9. Thoughts that you would be better off or of hurting yourself in some way: not at all Total score: 0 Depression Screening Interpretation: Negative Depression Screening Done: Yes 10708 - PHQ-9 Billing: Yes Source: Developed by Drs. Rei Wolfe, Tessa Powell, Hussain Meza and colleagues, with an educational manuel from [employer]. Thrive Questionnaire Date Thrive assessed: 07/26/24 I am a: Patient What is your living situation today?: I have a steady place to live Within the past 12 months, did the food you bought not last and you didn't have the money to get more?: Never true Within the past 12 months, did you worry whether your food would run out before you got money to buy more?: Never true Do you have trouble paying for medicines?: No Do you have trouble getting transportation to medical appointments?: No Do you have trouble paying your heating and electricity bill?: No Do you have trouble taking care of your child, family member or friend?: No Do you have trouble with day-to-day activities such as bathing, preparing meals, shopping, managing finances, etc.?: No Are you currently unemployed and looking for a job?: No Are you interested in more education?: No Please select the resources that you would like help with: None Currently or been in a relationship where the following occur: No concerns reported THRIVE Score: 0 AUDIT C Alcohol Use Questionnaire (AUDIT-C) 2. How many drinks containing alcohol do you have on a typical day when you are drinking?: 3 or 4 3. How often do you have six or more drinks on one occasion?: Less than monthly Total Score: 2 DIANE-7 AMB Questionnaire DIANE-7 Date DIANE - 7 assessed: 07/26/24 Feeling nervous, anxious, or on edge: 0 = Not at all Not being able to stop or control worryin = Not at all Worrying too much about different things: 0 = Not at all Trouble relaxin = Not at all Being so restless that it is hard to sit still: 0 = Not at all Becoming easily annoyed or irritable: 0 = Not at all Feeling afraid as if something awful might happen: 0 = Not at all Total DIANE-7 score (0-4 normal; 5-9 mild; 10-14 moderate; 15-21 severe): 0 Source: Developed by Drs. Rei Wolfe, Tessa Powell, Hussain Meza and colleagues, with an educational manuel from [employer]. DIANE-7 Assessment Billing DIANE-7 Assessment Tool: DIANE-7 Assessment 04608 Physical exam (Primary Care) Vital Signs: Last Vital Signs Temp 97.8 F 07/26/24 08:44 Pulse 80 07/26/24 08:44 BP 128/70 07/26/24 08:44 Pulse Ox 98 07/26/24 08:44 Oxygen Delivery Method Room Air 07/26/24 08:44 BMI result Body Mass Index 41.4 BMI Assessment/Plan discussion: High BMI High, discussed plan: lifestyle, weight reduction, dietary and physical activity Tobacco/Smoking Status: Tobacco use Status Tobacco use date assessed 07/26/24 07/26/24 08:47 Patient Tobacco Use Status Never used Tobacco 07/26/24 08:41 Tobacco use type Cigarette 07/26/24 08:41 e-Cigarette/Vaping Use Never Used 07/26/24 08:41 PHQ-9: PHQ-9 Score PHQ-9: Total score 0 07/26/24 09:05 Depression Screening Interpretation: Negative Thrive Assessment: Date of Thrive Assessment Date Thrive assessed 07/26/24 07/26/24 08:41 Currently or been in a relationship where the following occur: No concerns reported Immunizations Boostrix Tdap 2.5 Lf unit-8 mcg-5 Lf/0.5 mL intramuscular syringe Performing Provider: Luke Zhu PA-C [facility] Administered by: NO Wang on 07/26/24 09:05 Dose Route Admin Location Dispensed Lot Number Expiration Date [facility] Switchboard Mechanic 0.5 mL IM Left Deltoid 0.5 mL [id number] 09/25/26 60070-080-09 emaze VIS Given Date VIS Provided VIS Publication Date 07/26/24 Single Vaccine 21 Eligibility Eligibility Date Funding Source Not [facility] Eligible 07/26/24 Private Coding Level of Care Code Est Pt Level 4 (98348) Diagnoses Mixed hyperlipidemia E78.2 Hyperlipidemia type: mixed hyperlipidemia Essential hypertension I10 Hypertension type: essential hypertension Hypothyroidism, unspecified type E03.9 Hypothyroidism type: unspecified VICKIE (obstructive sleep apnea) G47.33 Class 3 obesity E66.813 Additional Codes DIANE-7 Assessment Billing - DIANE-7 Assessment Tool: DIANE-7 Assessment 36332 ([id number]) PHQ-9 - 92743 - PHQ-9 Billing: Yes ([id number]) Assessment & Plan Assessment & Plan (1) HLD (hyperlipidemia): Code(s): E78.5 - Hyperlipidemia, unspecified Category: Medical Qualifiers: Hyperlipidemia type: mixed hyperlipidemia Qualified Code(s): E78.2 - Mixed hyperlipidemia Plan: Patient continues on high dose statin therapy. Most recent lipid panel showing excellent control of his total cholesterol and LDL. Triglycerides have improved. Goal LDL is to remain below 100 (2) HTN (hypertension): Code(s): I10 - Essential (primary) hypertension Category: Medical Qualifiers: Hypertension type: essential hypertension Qualified Code(s): I10 - Essential (primary) hypertension Plan: Patient's blood pressure acceptable today in office. Will continue current dose of lisinopril with goal blood pressure to remain below 140/90 (3) Hypothyroidism: Code(s): E03.9 - Hypothyroidism, unspecified Category: Medical Qualifiers: Hypothyroidism type: unspecified Qualified Code(s): E03.9 - Hypothyroidism, unspecified Plan: Most recent TSH stable. Will continue to follow to ensure normal TSH. He continues on levothyroxine 125 mcg. (4) VICKIE (obstructive sleep apnea): Comment: on CPAP Code(s): G47.33 - Obstructive sleep apnea (adult) (pediatric) Category: Medical Plan: Patient continues with CPAP machine on a nightly basis. (5) Class 3 obesity: Code(s): E66.813 - Obesity, class 3 Category: Medical Plan: Patient continues to follow online weight management program. Patient does understand his BMI remains above 40 will continue on GLP 1 and being more physically active to reduce his weight. Orders: Orders Lipid Panel Today E78.2 - Mixed hyperlipidemia Comprehensive [place]. Panel Fast Today I10 - Essential (primary) hypertension Complete Blood Count no Diff Today I10 - Essential (primary) hypertension TDaP Immunization Today Z23 - Encounter for immunization TSH reflex Free T4 Today E03.9 - Hypothyroidism, unspecified Patient Instructions: Goal: Blood pressure to remain below 140/90, LDL to remain below 100 Barriers: Adherence to physical activity and healthy eating habits
[2024-07-26 08:44] VITALS: BP 128/70; PULSE 80; TEMP 36.6; O2SAT 98; BMI 41.4
== END 2024-07-26 09:04 | disposition home or self-care (01) ==
PROVIDERS: PCP Physician Assistant; Visit Provider Physician Assistant
DX: E78.2 Mixed hyperlipidemia (principal); E66.813 Obesity, class 3; Z68.41 Body mass index [BMI] 40.0-44.9, adult; I10 Essential (primary) hypertension; E03.9 Hypothyroidism, unspecified; G47.33 Obstructive sleep apnea (adult) (pediatric); Z23 Encounter for immunization

== ENCOUNTER → 2024-07-26 08:24 | Outpatient (BNVA) | payer OTHER, SELFPAY | PROVIDERS: PCP Physician Assistant; Visit Provider Physician Assistant | DX: E78.2 Mixed hyperlipidemia (principal); Z23 Encounter for immunization; I10 Essential (primary) hypertension; E03.9 Hypothyroidism, unspecified; G47.33 Obstructive sleep apnea (adult) (pediatric); E66.813 Obesity, class 3; Z68.41 Body mass index [BMI] 40.0-44.9, adult; Z99.89 Dependence on other enabling machines and devices | CPT/HCPCS: 90471; 90715; 96127 ==

== ENCOUNTER 2024-12-13 06:14 | Outpatient (REF) | payer OTHER, SELFPAY ==
[2024-12-17 17:08] LABS: Testosterone, Free 82.9 pg/mL (35.0-155.0)
== END 2024-12-13 06:15 | disposition home or self-care (01) ==
LOC: HO.LAB 06:14
PROVIDERS: PCP Physician Assistant; Visit Provider Nurse Practitioner Family
DX: R79.89 Other specified abnormal findings of blood chemistry (principal); E29.1 Testicular hypofunction
CPT/HCPCS: 36415; 84402; 84403

== ENCOUNTER 2024-12-27 10:29 | Outpatient (AMB) | payer OTHER, SELFPAY ==
--- NOTE | 2024-12-27 10:31 | MHC.OFFVIS ---
Intake Visit Reasons: 6m/Testo(set) Intake Note: Patient is present for 6M/TESTO Urology Medication:TADALAFIL Antibiotic Allergy:PENICILLIN V Blood Thinner:NONE Aids Counselor Required: No Allergies penicillin V Allergy (Unknown, Verified 12/27/24 10:43) hives Medication List - Last Reconciled 12/27/24 by ISSA Arias-SOUTH atorvastatin 80 mg PO DAILY cholecalciferol (vitamin D3) 125 mcg PO DAILY levothyroxine 125 mcg PO DAILY 90 days lisinopril 5 mg PO DAILY 90 days loratadine (Claritin) 10 mg PO DAILY multivitamin 1 tab PO DAILY tadalafil (Cialis) 5 mg PO DAILY 90 days tirzepatide (weight loss) (Zepbound) 15 mg subcut HPI Comments Details: Fredis is a very pleasant 44 year old male patient of Dr. Zhu. He has a past medical history of obesity, sleep apnea, hypothyroidism, and hypercholesteremia. He presents to the office today for follow-up of his hypogonadism. In discussion with the patient today he reports to be doing and feeling well. Recent testosterone results reviewed with the patient today. Testosterone: 12/29 227, 03/01 241, 07/02 401, 12/30 398, 07/03 486, 12/31 592 Free testosterone: 12/29 30.0, 03/01 39.5, 07/02 54.1, 12/30 61.3, 07/03 70.5 Estradiol 12/29 56 03/01 FSH 2.0, LH 2.2, Prolactin 5.4, SHBG 30, DHEA sulfate 208. 07/31 PSA 0.3 We discussed correlation of weight loss as well as daily dosing of Cialis 5 mg daily in relation to testosterone levels. He reports that although he did not have any bothersome issues or signs and symptoms of hypogonadism he does feel improvement overall mood and erections with 5 mg of Cialis daily. He denies any bothersome issues with his urination. He does report to be CPAP compliant since 2017. He discusses continuing to lose weight and goes for daily walks. He discusses having intentionally lost over 140 lb over the last 2 years. He is due to follow-up with his PCP in February. We discussed at length potential causes for hypogonadism. In office urinalysis results reviewed with the patient today. He otherwise offers no other issues or concerns at this time. [facility] Medical History Sleep apnea Upper respiratory tract infection Patient is full code Surgical History History of surgical removal of lesion History of cosmetic surgery History of tonsillectomy and adenoidectomy History of appendectomy Family History Father CVD (cardiovascular disease) Hyperthyroidism Melanoma Mother Aortic valve replaced CVD (cardiovascular disease) Maternal Grandfather Myocardial infarction Brother Liver transplant status Biliary sclerosis Social History Housing: House Alcohol intake: current Alcohol intake frequency: holidays/special occasions only Alcohol type: beer Patient Tobacco Use Status: Never used Tobacco Tobacco use type: Cigarette e-Cigarette/Vaping Use: Never Used Second Hand Smoke Exposure: No service: No Current occupational status: employed 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 Cognitive needs: No Hearing needs: No Vision needs: No Review of Systems Const Reports as per HPI Eyes Reports no additional complaints ENT Reports as per HPI Card Reports as per HPI Resp Reports as per HPI GI Reports as per HPI Reports as per HPI Neuro Reports no additional complaints Psych Reports no additional complaints Endo Reports as per HPI Physical Exam Const General: cooperative, healthy appearing, comfortable, no acute distress, well developed, alert and awake Nutritional Appearance: obese Orientation/consciousness: patient oriented x3 Limitations: no limitations HEENT Head: Yes normal to inspection, Yes normocephalic and Yes atraumatic Ears: hearing grossly normal bilaterally Eyes General: appearance normal, both eyes and all related structures Neck Neck: Yes normal visual inspection and Yes trachea midline Chest Chest palpation & inspection: normal inspection of the chest Resp Effort & Inspection: normal respiratory effort and able to speak in complete sentences Cardio Rate: regular rate GI Inspection: Yes normal to inspection General: Yes no CVA tenderness Back/Spine/Pelvis Back: no CVA tenderness Skin General skin exam: no rashes or lesions noted Neuro General: patient oriented x3 Extrem General: Yes normal to inspection Psych Appearance: grossly normal and well kempt Mental Status: mental status grossly normal Speech and movement: Normal speech and movement present and Clear speech present Affect: normal affect Attitude: cooperative Thought process: Normal thought process present Thought content: Normal thought content present Insight: Fair insight present (Psych) Judgement: Fair judgement present (Psych) Results AMB Urinalysis, Automated UA Leukoctes 0 Darren/uL Last Edit by NO Lazo on 12/27/24 10:50 UA Nitrite Negative Last Edit by Burak Jeong [facility] on 12/27/24 10:50 UA Urobilinogen 0.2 mg/dL Last Edit by Burak Jeong [facility] on 12/27/24 10:50 UA Protein 0 mg/dL Last Edit by Burak Jeong [facility] on 12/27/24 10:50 UA pH 6.0 Last Edit by Burak Jeong [facility] on 12/27/24 10:50 UA Blood 0 Kenan/uL Last Edit by Burak Jeong [facility] on 12/27/24 10:50 UA Specific [place]ow 1.015 Last Edit by Burak Jeong [facility] on 12/27/24 10:50 UA Ketone Negative Last Edit by Burak Jeong [facility] on 12/27/24 10:50 UA Bilirubin 0 mg/dL Last Edit by Burak Jeong [facility] on 12/27/24 10:50 UA Glucose 0 mg/dL Last Edit by Burak Jeong [facility] on 12/27/24 10:50 Results Reviewed Results Reviewed: Laboratory Last Values Urine pH (Auto) 6.0 12/27/24 10:36 Specific [place]ow (Auto) 1.015 12/27/24 10:36 Urine Protein (Auto) 0 mg/dL 12/27/24 10:36 Glucose (UA)(Auto) 0 mg/dL 12/27/24 10:36 Urine Ketones (Auto) Negative 12/27/24 10:36 Urine Blood (Auto) 0 Kenan/uL 12/27/24 10:36 Urine Nitrite (Auto) Negative 12/27/24 10:36 Urine Bilirubin (Auto) 0 mg/dL 12/27/24 10:36 Urine Urobilinogen (Auto) 0.2 mg/dL 12/27/24 10:36 Leukocyte Esterase (Auto) 0 Darren/uL 12/27/24 10:36 Assessment & Plan Assessment & Plan (1) Hypogonadism in male: Code(s): E29.1 - Testicular hypofunction Category: Medical (2) Low testosterone in male: Code(s): R79.89 - Other specified abnormal findings of blood chemistry Category: Medical Plan In office urinalysis results reviewed with the patient today; as noted above. Recent lab results reviewed with the patient today; as noted above. Discussed at length potential causes for hypogonadism. Discussed importance of compliance with CPAP, weight loss, adequate sleep, and daily activity for improvement in testosterone levels as well as overall health and well-being. Continue 5 mg of Cialis daily; as discussed and prescribed. Will obtain redraw of testosterone free and total in 6 months Patient denies any bothersome urinary issues or concerns at this time. Follow-up in 6 month with labs to be completed prior; or sooner with any issues, concerns, and or questions. Orders: Orders AMB Urinalysis Automated Today Z13.9 - Encounter for screening, unspecified Testosterone, Free/Total 6 Months E11.69 - Type 2 diabetes mellitus with other specified complication, N52.1 - Erectile dysfunction due to diseases classified elsewhere Patient Instructions: The patient had an opportunity to ask questions regarding the treatment plan. All questions were answered. Physical exam, labs, and imaging were discussed and reviewed in detail. As well as risks, benefits, and discussion of treatment choices. No major barriers to understanding were identified. The patient expressed understanding and agreement with the above treatment plan. The patient was made aware they should contact our office by phone for worsening of their current condition, the appearance of new symptoms, or with any questions or concerns. Compliance is encouraged with any medications and follow up testing that is ordered. It is a privilege to be allowed the opportunity to participate in? your urological care.? Again, if you have any questions or concerns If you have any questions or concerns please do not hesitate to contact me. The office is [phone]. This note is constructed using voice recognition software. While every effort has been made to ensure accuracy produce laborer errors may have been included. Yours sincerely, GIULIANA Arias Coding Level of Care Code Est Pt Level 3 (37320) Diagnoses Hypogonadism in male E29.1 Low testosterone in male R79.89
--- OUTSIDE RECORDS SUMMARY | 2024-12-27 11:30 | XMS_ITS | Patient Health Record ---
Author Organization [facility] [address] [place] [address] Care Team Providers Care .Net Architect Name Role Phone Veda Vo MD Primary Care Provider Unavaila Wesley Chavira Unavailable [phone] Мария Ng Unavailable Unavailable Allergies Allergen (clinical drug ingredient) Drug/Non Drug Allergy documented on EMR Reaction Allergy Type Onset Date Status amoxicillin Amoxicillin unknown Drug Allergy Act ibis Reason For Referral No Information Medications Medication SIG (Take, Route, Frequency, Duration) Notes Start Date End Date Status Nystatin 408796 UNIT/GM (Prior Auth: Rx Ref___#:[id number]) External; Duration: 3 Not-Taking Levothyroxine Sodium 100 MCG (Prior Auth: Rx Ref___#:[id number]) Oral; Duration: 90 Active Lisinopril 2.5 MG (Prior Auth: Rx Ref___#:[id number]) Oral; Duration: 90 Active Atorvastatin Calcium 40 MG (Prior Auth: Rx Ref___#:[id number]) Oral; Duration: 90 Active Fluconazole 100 MG (Prior Auth: Rx Ref___#:[id number]) Oral; Duration: 7 Not-Taking Ipratropium [place] 0.03 % (Prior Auth: Rx Ref___#:[id number]) Nasal; Duration: 30 Not-Taking [facility] D3 5000 UNIT (Prior Auth: Rx Ref___#:[id number]) Oral; Duration: 90 Active Social History Tobacco Use: Social History Observation Description Date Details (start date - stop date) Never Smoker NA - NA Tobacco Use/Smoking Question Answer Notes Are you a: nonsmoker Additional Findings: Tobacco Non-User Current no n-smoker Alcohol Screen Question Answer Notes Did you have a drink containing alcohol in the p ast year? Yes Points 0 Interpretation Negative Tobacco use other than smoking: Question Answer Notes Are you an other tobacco user? No Problems Problem Type SNOMED Code ICD Code Onset Dates Problem Status W/U Status Risk Notes Problem Plantar wart (B07.0) Active confirmed Plan Of Treatment Pending Test Test Name Order Date [id number] Destruction, 1-14 11/30/2018 Insurance Providers Payer Name Payer Address Payer Phone Subscriber Number Group Number Insured Name Patient Relationship to Insured Coverage Start Date Coverage End Date [employer] ([facility]) [address] [place] [address] [id number] Fredis Sherwood Self - patient is the insured Medical (General) History Medical History History ICD Code Hypertension Thyroid disorder CAD Surgical History Surgery Date(Month/Year) appendectomy 12/2003 tonsillectomy and adenoidectomy
== END 2024-12-27 11:05 | disposition home or self-care (01) ==
LOC: HO.HUSH 10:29
PROVIDERS: PCP Physician Assistant; Visit Provider Nurse Practitioner Family
DX: E29.1 Testicular hypofunction (principal); R79.89 Other specified abnormal findings of blood chemistry; Z13.9 Encounter for screening, unspecified
CPT/HCPCS: 99213

== ENCOUNTER → 2024-12-27 10:29 | Outpatient (BNVA) | payer OTHER, SELFPAY | PROVIDERS: PCP Physician Assistant; Visit Provider Nurse Practitioner Family | DX: E11.69 Type 2 diabetes mellitus with other specified complication (principal) | CPT/HCPCS: 81003 ==

== ENCOUNTER 2025-02-05 08:10 | Outpatient (REF) | payer OTHER, SELFPAY ==
--- OUTSIDE RECORDS SUMMARY | 2025-02-05 08:14 | XMS_ITS | Patient Health Record ---
Author Organization [facility] [address] [place] [address] Care Team Providers Care Guest History Clerk Name Role Phone Veda Vo MD Primary Care Provider Unavaila Wesley Chavira Unavailable [phone] Мария Ng Unavailable Unavailable Allergies Allergen (clinical drug ingredient) Drug/Non Drug Allergy documented on EMR Reaction Allergy Type Onset Date Status amoxicillin Amoxicillin unknown Drug Allergy Act ibis Reason For Referral No Information Medications Medication SIG (Take, Route, Frequency, Duration) Notes Start Date End Date Status Nystatin 729219 UNIT/GM (Prior Auth: Rx Ref___#:[id number]) External; Duration: 3 Not-Taking Levothyroxine Sodium 100 MCG (Prior Auth: Rx Ref___#:[id number]) Oral; Duration: 90 Active Lisinopril 2.5 MG (Prior Auth: Rx Ref___#:[id number]) Oral; Duration: 90 Active Atorvastatin Calcium 40 MG (Prior Auth: Rx Ref___#:[id number]) Oral; Duration: 90 Active Fluconazole 100 MG (Prior Auth: Rx Ref___#:[id number]) Oral; Duration: 7 Not-Taking Ipratropium [place] 0.03 % (Prior Auth: Rx Ref___#:[id number]) Nasal; Duration: 30 Not-Taking [facility] D3 5000 UNIT (Prior Auth: Rx Ref___#:[id number]) Oral; Duration: 90 Active Social History Tobacco [...] Treatment Pending Test Test Name Order Date [id number] Destruction, 1-14 11/30/2018 Insurance Providers Payer Name Payer Address Payer Phone Subscriber Number Group Number Insured Name Patient Relationship to Insured Coverage Start Date Coverage End Date [employer] [facility] [address] [place] [address] [id number] Fredis Sherwood Self - patient is the insured Medical (General) History Medical History History ICD Code Hypertension Thyroid disorder CAD Surgical History Surgery Date(Month/Year) appendectomy 12/2003 tonsillectomy and adenoidectomy
[2025-02-05 08:55] LABS: Hematocrit 43.9 % (42.0-52.0); Hemoglobin 15.1 g/dl (14.0-18.0); Mean Corpuscular HGB Conc 34.4 g/dl (31.0-36.0); Mean Corpuscular Hemoglobin 29.5 pg (27.0-33.0); Mean Corpuscular Volume 85.7 fL (80.0-98.0); NRBC Abs Auto 0.000 X10*3/uL (0.0-0.012); NRBC Pct Auto 0.0 /100WBC (0.0-0.2); Platelet Count 239 X10*3/uL (160-400); Red Blood Count 5.12 X10*6/uL (4.60-5.80); White Blood Count 7.1 X10*3/uL (4.8-10.8)
[2025-02-05 09:50] LABS: Alanine Aminotransferase 52 U/L (0-40); Albumin Level 4.6 g/dL (3.5-5.0); Alkaline Phosphatase 67 U/L (39-117); Anion Gap 14 (12-20); Aspartate Amino Transferase 32 U/L (5-37); Blood Urea Nitrogen 12 mg/dL (9-16); Calcium 9.4 mg/dL (8.4-10.2); Carbon Dioxide 27 mmol/L (22-29); Chloride 105 mmol/L (96-108); Cholesterol 147 mg/dL (<200); Estimated Glomerular Filt Rate > 60; HDL Cholesterol 40 mg/dL (>40); Potassium 4.2 mmol/L (3.3-5.1); Sodium 142 mmol/L (135-145); Total Protein 7.3 g/dL (6.5-8.0); Triglycerides 123 mg/dL (<150)
== END 2025-02-05 08:11 | disposition home or self-care (01) ==
LOC: HO.LAB 08:10
PROVIDERS: PCP Physician Assistant; Visit Provider Physician Assistant
DX: I10 Essential (primary) hypertension (principal); E03.9 Hypothyroidism, unspecified; E78.2 Mixed hyperlipidemia
CPT/HCPCS: 36415; 80053; 80061; 84443; 85027

== ENCOUNTER 2025-02-14 07:52 | Outpatient (AMB) | payer OTHER, SELFPAY ==
--- OUTSIDE RECORDS SUMMARY | 2025-02-14 07:56 | XMS_ITS | Patient Health Record ---
[facility] [address] [place] [address] Care Team Providers Care Operations Specialist Name Role Phone Veda Vo MD Primary Care Provider Unavaila Wesley Chavira Unavailable [phone] Мария Ng Unavailable Unavailable Allergies Allergen (clinical drug ingredient) Drug/Non Drug Allergy documented on EMR Reaction Allergy Type Onset Date Status amoxicillin Amoxicillin unknown Drug Allergy Act ibis Reason For Referral No Information Medications Medication SIG (Take, Route, Frequency, Duration) Notes Start Date End Date Status Nystatin 901149 UNIT/GM (Prior Auth: Rx Ref___#:[id number]) External; Duration: 3 Not-Taking Levothyroxine Sodium 100 MCG (Prior Auth: Rx Ref___#:[id number]) Oral; Duration: 90 Active Lisinopril 2.5 MG (Prior Auth: Rx Ref___#:[id number]) Oral; Duration: 90 Active Atorvastatin Calcium 40 MG (Prior Auth: Rx Ref___#:[id number]) Oral; Duration: 90 Active Fluconazole 100 MG (Prior Auth: Rx Ref___#:[id number]) Oral; Duration: 7 Not-Taking Ipratropium [place] 0.03 % (Prior Auth: Rx Ref___#:[id number]) Nasal; Duration: 30 Not-Taking [facility] D3 5000 UNIT (Prior Auth: Rx Ref___#:[id number]) Oral; Duration: 90 Active Social History Tobacco [...] W/U Status Risk Notes Problem Plantar wart (24892232) Plantar wart (B07.0) Active confirmed Plan Of Treatment Pending Test Test Name Order Date [id number] Destruction, 1-14 11/30/2018 Insurance Providers Payer Name Payer Address Payer Phone Subscriber Number Group Number Insured Name Patient Relationship to Insured Coverage Start Date Coverage End Date [employer] ([facility]) [address] [place] [id number] Fredis Sherwood Self - patient is the insured Medical (General) History Medical History History ICD Code Hypertension Thyroid disorder CAD Surgical History Surgery Date(Month/Year) appendectomy 12/2003 tonsillectomy and adenoidectomy
--- NOTE | 2025-02-14 08:12 | A.OFFPC_ITS ---
Vital Signs 02/14/25 08:13 Height 6 ft Weight 295 lb BMI 40.0 BP 132/70 Blood Pressure Location Lt brachial Position Sitting Pulse 83 Pulse Source Pulse Oximeter Temp 97.1 F Temp Source Temporal Artery Scan Pulse Oximetry (%) 97 Oxygen Delivery Method Room Air Intake Visit Reasons: ANNUAL Intake Note: Patient is here today for a physical. Global Climate Change Analyst Required: No Oem Sales Manager: Not Required per policy Accompanied by: Self / Same As Patient Allergies penicillin V Allergy (Unknown, Verified 02/14/25 08:25) hives Medication List - Last Reconciled 02/14/25 by Luke Zhu PA-C atorvastatin 80 mg PO DAILY cholecalciferol (vitamin D3) 125 mcg PO DAILY levothyroxine 125 mcg PO DAILY 90 days lisinopril 5 mg PO DAILY 90 days loratadine (Claritin) 10 mg PO DAILY multivitamin 1 tab PO DAILY tadalafil (Cialis) 5 mg PO DAILY 90 days tirzepatide (weight loss) (Zepbound) 15 mg subcut Tobacco use date assessed: 02/14/25 Dental Screening Dental Screen Date: 07/26/24 HPI ANNUAL HPI Details Patient is a 44-year-old male here today for an annual physical ? Patient has a past medical history significant for hypothyroidism, hypercholesterolemia, microalbuminuria, obesity, hypertension, VICKIE, ? .. ? Hypertension: Patient continues on lisinopril 5 mg and blood pressure today on the low side. He denies any fatigue, syncopal episodes etc.. . Does not monitor blood pressure at [facility]. Fortunately he is asymptomatic without any headache, vision issues or chest pains Most recent urine without signs of microalbuminuria. .. VICKIE: Continues on nightly use of his obstructive sleep apnea machine with good effect on sleep. .. Class 3 Obesity:? Continues to lose weight on GLP 1. Continues to go to weight management program. He continues Zepbound in his lost more weight. Today's weight at 295 Lbs and BMI down at 40. Has been able to lose a significant amount of weight. .. Hypogonadism: He does follow a urologist.. Has been started on Cialis 5 mg. Most recent testosterone level normalized with weight loss in the addition of Cialis. ? .. ? HYpothyroid:? Most recent TSH stable. he has been clinically euthyroid. ? Will continue to follow TSH ? .. ? HLD: Has been stable with high dose statin therapy.?? No reported side effects from statin therapy. Vaccine: Up-to-date with COVID, tetanus, considering flu vaccine Laboratory Tests 07/23/24 12/13/24 02/05/25 06:37 06:34 08:23 RBC 5.12 Creatinine 0.74 Fasting Glucose 85 Cholesterol 147 LDL Cholesterol, C alc 83 TSH 3.31 2.36 Total Testosterone 592 [facility] Medical History Sleep apnea Upper respiratory tract infection Patient is full code Surgical History History of surgical removal of lesion History of cosmetic surgery History of tonsillectomy and adenoidectomy History of appendectomy Family History Father CVD (cardiovascular disease) Hyperthyroidism Melanoma Mother Aortic valve replaced CVD (cardiovascular disease) Maternal Grandfather Myocardial infarction Brother Liver transplant status Biliary sclerosis Social History (Updated 02/14/25 @ 08:24 by Luke Zhu PA-C) Housing: House Alcohol intake: current Alcohol intake frequency: holidays/special occasions only Alcohol type: beer Patient Tobacco Use Status: Never used Tobacco Tobacco use type: Cigarette e-Cigarette/Vaping Use: Never Used Second Hand Smoke Exposure: No service: No Current occupational status: employed 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 1. Little interest or pleasure in doing things: not at all 2. Feeling down, depressed, or hopeless: not at all 3. Trouble falling or staying asleep, or sleeping too much: not at all 4. Feeling tired or having little energy: not at all 5. Poor appetite or overeating: not at all 6. Feeling bad about yourself - or that you are a failure or have let yourself or your family down: not at all 7. Trouble concentrating on things, such as reading the newspaper or watching television: not at all 8. Moving or speaking so slowly that other people could have noticed. Or the opposite - being so fidgety or restless that you have been moving around a lot more than usual: not at all 9. Thoughts that you would be better off or of hurting yourself in some way: not at all Total score: 0 Depression Screening Interpretation: Negative Depression Screening Done: Yes 93877 - PHQ-9 Billing: Yes Source: Developed by Drs. Rei Wolfe, Tessa Powell, Hussain Meza and colleagues, with an educational manuel from [employer]. Thrive Questionnaire Date Thrive assessed: 02/13/25 I am a: Patient What is your living situation today?: I have a steady place to live Within the past 12 months, did the food you bought not last and you didn't have the money to get more?: Never true Within the past 12 months, did you worry whether your food would run out before you got money to buy more?: Never true Do you have trouble paying for medicines?: No Do you have trouble getting transportation to medical appointments?: No Do you have trouble paying your heating and electricity bill?: No Do you have trouble taking care of your child, family member or friend?: No Do you have trouble with day-to-day activities such as bathing, preparing meals, shopping, managing finances, etc.?: No Are you currently unemployed and looking for a job?: No Are you interested in more education?: No Please select the resources that you would like help with: None Currently or been in a relationship where the following occur: No concerns reported THRIVE Score: 0 AUDIT C Alcohol Use Questionnaire (AUDIT-C) 1. How often do you have a drink containing alcohol?: 2-4 times a month Total Score: 2 DIANE-7 AMB Questionnaire DIANE-7 Date DIANE - 7 assessed: 07/26/24 Feeling nervous, anxious, or on edge: 0 = Not at all Not being able to stop or control worryin = Not at all Worrying too much about different things: 0 = Not at all Trouble relaxin = Not at all Being so restless that it is hard to sit still: 0 = Not at all Becoming easily annoyed or irritable: 0 = Not at all Feeling afraid as if something awful might happen: 0 = Not at all Total DIANE-7 score (0-4 normal; 5-9 mild; 10-14 moderate; 15-21 severe): 0 Source: Developed by Drs. Rei Wolfe, Tessa Powell, Hussain Meza and colleagues, with an educational manuel from [employer]. DIANE-7 Assessment Billing DIANE-7 Assessment Tool: DIANE-7 Assessment 77846 Review of Systems Const Denies body aches, Denies chills, Denies excessive sweating, Denies fatigue, Denies fever(s) and Denies headache(s) Eyes Denies blurry vision ENT Denies dysphagia, Denies vertigo, Denies dizziness, Denies headache(s), Denies hearing loss and Denies tinnitus Card Denies chest pain, Denies chest pain with activity, Denies syncope, Denies irregular heart rhythm and Denies dyspnea Resp Denies chest congestion, Denies cough, Denies hemoptysis, Denies dyspnea and Denies wheezing GI Denies abdominal pain, Denies melena, Denies hematochezia, Denies coffee ground emesis, Denies dysphagia, Denies diarrhea, Denies nausea and Denies vomiting Denies difficulty urinating, Denies dysuria, Denies urinary frequency, Denies urinary hesitancy and Denies urinary urgency Musc Denies arthralgias, Denies limited range of motion, Denies muscle cramps and Denies muscle weakness Skin/Breast Denies rash and Denies skin ulcer Neuro Denies Abnormal speech present, Denies confusion, Denies vertigo, Denies dizziness, Denies syncope, Denies headache(s), Denies memory loss and Denies seizure-like activity Psych Denies anxiety, Denies confusion, Denies depression, Denies memory loss, Denies panic attacks and Denies paranoia Endo Denies excessive sweating, Denies fatigue, Denies flushing, Denies polydipsia and Denies polyuria Aller/Immun Denies wheezing Physical exam (Primary Care) Vital Signs: Last Vital Signs Temp 97.1 F 02/14/25 08:13 Pulse 83 02/14/25 08:13 BP 132/70 02/14/25 08:13 Pulse Ox 97 02/14/25 08:13 Oxygen Delivery Method Room Air 02/14/25 08:13 BMI result Body Mass Index 40.0 BMI Assessment/Plan discussion: High BMI High, discussed plan: lifestyle, weight reduction, dietary and physical activity Tobacco/Smoking Status: Tobacco use Status Tobacco use date assessed 02/14/25 02/14/25 08:18 Patient Tobacco Use Status Never used Tobacco 02/14/25 08:18 Tobacco use type Cigarette 02/14/25 08:18 e-Cigarette/Vaping Use Never Used 02/14/25 08:18 PHQ-9: PHQ-9 Score PHQ-9: Total score 0 02/14/25 08:18 Depression Screening Interpretation: Negative Thrive Assessment: Date of Thrive Assessment Date Thrive assessed 02/13/25 02/14/25 08:18 Currently or been in a relationship where the following occur: No concerns reported Const Other: OBESE General: cooperative, comfortable, no acute distress, alert and awake; No confusion Orientation/consciousness: oriented to person, oriented to place, patient oriented x3 and No confusion HENMT Head: Yes normocephalic Ears: external ears normal and TM's normal bilaterally Face and sinus: No sinus tenderness Mouth: Normal oral and palatal mucosa present and tongue normal Teeth and gingiva: dentition normal and gingiva normal Throat: Yes posterior oropharynx normal, Yes tonsils normal and Yes uvula midline Eyes Conjunctivae: conjunctivae normal Sclerae: sclerae normal Pupils: Equal, round and reactive pupils present EOM: EOMs intact bilaterally Direct Ophthalmoscopy: No no photophobia Neck Neck: Yes no lymphadenopathy, No tender and Yes no JVD Thyroid: Thyroid normal Carotids: no bruits Chest Chest palpation & inspection: no tenderness Resp Effort & Inspection: normal respiratory effort, no audible wheezes, not labored and no stridor Auscultation: no crackles, no rales, no rhonchi and no wheezes Cardio Jugular venous distension: no JVD Rate: regular rate, not bradycardic and not tachycardic Rhythm: regular rhythm Bruits: no carotid bruits Peripheral pulses: Peripheral pulses 2+ throughout GI Inspection: Yes normal to inspection, No abdominal wall ecchymosis and No visible herniation Palpation (GI): Soft to palpation, nontender, no guarding, not rigid and No hepatosplenomegaly present Auscultation: normoactive bowel sounds General: Yes no CVA tenderness Back/Spine/Pelvis Back: no CVA tenderness and No back tenderness Cervical Spine: cervical ROM normal Thoracic/Lumbar Spine: thoracic and lumbar spine normal to inspection, straight leg raise negative bilaterally, No thoraco-lumbar ROM limited and No lumbar spinal tenderness Skin Lesions: no lesions Rashes: no rashes Wounds: no wounds Neuro General: oriented to person, oriented to place, patient oriented x3, CN's II-XI intact bilaterally and No confusion Cranial nerves: Yes Equal, round and reactive pupils present and Yes Normal accommodation reflex present Cognition (Neuro): normal cognition Speech: No Abnormal speech present Gait exam (Neuro): Normal gait present Motor exam (neuro): 5/5 motor strength present throughout Extrem Right upper extremity: full ROM; no cyanosis Left upper extremity: full ROM; no cyanosis Right lower extremity: no edema Left lower extremity: no edema Psych Appearance: grossly normal Mental Status: mental status grossly normal Affect: normal affect Attitude: cooperative Thought process: Normal thought process present Coding Level of Care Code Est Pt Prev Care 40-64y(73395) Diagnoses Annual physical exam Z00.00 Mixed hyperlipidemia E78.2 Hyperlipidemia type: mixed hyperlipidemia Essential hypertension I10 Hypertension type: essential hypertension Hypothyroidism, unspecified type E03.9 Hypothyroidism type: unspecified VICKIE (obstructive sleep apnea) G47.33 Class 3 obesity E66.813 Additional Codes PHQ-9 - 33371 - PHQ-9 Billing: Yes ([id number]) DIANE-7 Assessment Billing - DIANE-7 Assessment Tool: DIANE-7 Assessment 10192 ([id number]) Assessment & Plan Assessment & Plan (1) Annual physical exam: Code(s): Z00.00 - Encounter for general adult medical examination without abnormal findings Category: Medical Plan: As per HPI (2) HLD (hyperlipidemia): Code(s): E78.5 - Hyperlipidemia, unspecified Category: Medical Qualifiers: Hyperlipidemia type: mixed hyperlipidemia Qualified Code(s): E78.2 - Mixed hyperlipidemia Plan: Patient continues on high dose statin therapy. Most recent lipid panel showing excellent control of his total cholesterol and LDL. Still note a slight elevation in ALT. Will decrease his statin potency as he has lost over 100 lb on GLP 1 Goal LDL is to remain below 100 (3) HTN (hypertension): Code(s): I10 - Essential (primary) hypertension Category: Medical Qualifiers: Hypertension type: essential hypertension Qualified Code(s): I10 - Essential (primary) hypertension Plan: Patient's blood pressure acceptable today in office. Will continue current dose of lisinopril with goal blood pressure to remain below 140/90 (4) Hypothyroidism: Code(s): E03.9 - Hypothyroidism, unspecified Category: Medical Qualifiers: Hypothyroidism type: unspecified Qualified Code(s): E03.9 - Hypothyroidism, unspecified Plan: Most recent TSH stable. Will continue to follow to ensure normal TSH. He continues on levothyroxine 125 mcg. (5) VICKIE (obstructive sleep apnea): Comment: on CPAP Code(s): G47.33 - Obstructive sleep apnea (adult) (pediatric) Category: Medical Plan: Patient continues with CPAP machine on a nightly basis. Has lost over 100 lb since being on GLP 1 and wonders if he still needs a CPAP machine. Will consider getting repeat sleep study (6) Class 3 obesity: Code(s): E66.813 - Obesity, class 3 Category: Medical Plan: Patient continues to follow online weight management program. Patient does understand his BMI remains above 40 will continue on GLP 1 and being more physically active to reduce his weight. Orders: Orders Complete Blood Count no Diff Today E78.2 - Mixed hyperlipidemia TSH reflex Free T4 Today E03.9 - Hypothyroidism, unspecified Comprehensive [place]. Panel Fast Today E78.2 - Mixed hyperlipidemia Lipid Panel Today E78.2 - Mixed hyperlipidemia Medications: New atorvastatin (Lipitor) 40 mg PO DAILY 90 tabs 1RF 90 days E78.2 - Mixed hyperlipidemia Discontinued atorvastatin Discontinued Reason: Doctor's Order 80 mg PO DAILY 90 tabs 2RF
[2025-02-14 08:13] VITALS: BP 132/70; PULSE 83; TEMP 36.2; O2SAT 97; BMI 40.0
== END 2025-02-14 08:36 | disposition home or self-care (01) ==
LOC: HO.HMCH 07:53
PROVIDERS: PCP Physician Assistant; Visit Provider Physician Assistant
DX: Z00.00 Encounter for general adult medical examination without abnormal findings (principal); E78.2 Mixed hyperlipidemia; E66.813 Obesity, class 3; Z68.41 Body mass index [BMI] 40.0-44.9, adult; I10 Essential (primary) hypertension; E03.9 Hypothyroidism, unspecified; G47.33 Obstructive sleep apnea (adult) (pediatric)

== ENCOUNTER → 2025-02-14 07:52 | Outpatient (BNVA) | payer OTHER, SELFPAY | PROVIDERS: PCP Physician Assistant; Visit Provider Physician Assistant | DX: Z00.00 Encounter for general adult medical examination without abnormal findings (principal); I10 Essential (primary) hypertension; G47.33 Obstructive sleep apnea (adult) (pediatric); E29.1 Testicular hypofunction; E78.2 Mixed hyperlipidemia; E03.9 Hypothyroidism, unspecified; E66.813 Obesity, class 3; Z68.41 Body mass index [BMI] 40.0-44.9, adult | CPT/HCPCS: 96127 ==